=== PATIENT | female | born 1995 | race Caucasian/White ===

== ENCOUNTER → 2019-04-29 | Outpatient (CLI) | payer OTHER ==
--- NOTE | 2019-04-29 19:11 | US ---
EXAMINATION TYPE: US pelvic complete DATE OF EXAM: 04/29/2019 COMPARISON: NONE CLINICAL HISTORY: R10.2 Pelvic Pain. Intermittent cramping, irregular menses, vaginal discharge-muscu s TECHNIQUE: Transabdominal (TA). Date of LMP: 2-3 weeks ago EXAM MEASUREMENTS: Uterus: 7.1 x 3.7 x 4.7 cm Endometrial Stripe: 1.4 cm Right Ovary: 2.5 x 1.6 x 1.6 cm Left Ovary: 3.2 x 2.1 x 2.3 cm 1. Uterus: Anteverted 2. Endometrium: Upper limits of normal 3. Right Ovary: follicles noted 4. Left Ovary: follicles noted 5. Bilateral Adnexa: appears wnl 6. Posterior cul-de-sac: wnl IMPRESSION: 1. Upper limits of normal size of the endometrial thickness. 2. Follicular changes of the ovaries are physiologic.
[2019-04-30 00:49] LABS: Progesterone 7.6 ng/mL
== END | disposition home or self-care (01) ==
LOC: MERGE 16:20 → RADUSWWP 17:01
PROVIDERS: ATTEND Obstetrics & Gynecology
DX: R10.2 Pelvic and perineal pain (principal); N93.8 Other specified abnormal uterine and vaginal bleeding
CPT/HCPCS: 36415; 76856; 82670; 83001; 83002; 84144; 84146; 84702

== ENCOUNTER 2021-07-13 20:46 | Emergency (ER) | payer OTHER ==
[2021-07-13 21:33] VITALS: RESP 18; TEMP 99
[2021-07-13] MEDS ORDERED: SODIUM CHLORIDE 0.9% 1,000 ML IV STA (23:32)
[2021-07-13] MEDS ORDERED: ONDANSETRON 4 MG/2 ML VIAL IVP STA (23:32)
[2021-07-13] MEDS ORDERED: KETOROLAC 15 MG/ML 1 ML VIAL IVP STA (23:32)
--- NOTE | 2021-07-13 23:57 | ED ---
General Adult HPI - General Chief complaint: Abdominal Pain Stated complaint: N/V Source: patient, RN notes reviewed Mode of arrival: ambulatory Limitations: no limitations - History of Present Illness Initial comments: 25-year-old female presents to the emergency room for a chief complaint of nausea vomiting. Patient states that she gets these episodes frequently. She reports that she has had about 3 days of nausea vomiting this time. No significant abdominal pain. Patient has been seen at [facility] several times for this. States she has not yet followed up with primary care or GI but did call today to schedule an appointment for GI for July. Patient reports she may be constipated. Her last bowel movement was yesterday. Patient denies fevers or chills.Patient has no other complaints at this time including shortness of breath, chest pain, headache, or visual changes. - Related Data Previous Rx's Medication Instructions Recorded Metoclopramide [Reglan] 10 mg PO TID PRN #12 tab 07/14/21 Allergies Allergy/AdvReac Type Severity Reaction Status Date / Time amoxicillin AdvReac Vomiting Verified 07/13/21 21:34 diphenhydramine AdvReac Diarrhea Verified 07/13/21 21:34 [From Benadryl Allergy] Review of Systems ROS Statement: Those systems with pertinent positive or pertinent negative responses have been documented in the HPI. ROS Other: All systems not noted in ROS Statement are negative. Past Medical History Past Medical History: No Reported History History of Any Multi-Drug Resistant Organisms: None Reported Past Surgical History: No Surgical Hx Reported Past Psychological History: No Psychological Hx Reported Smoking Status: Former smoker Past Alcohol Use History: None Reported Past Drug Use History: Marijuana General Exam Limitations: no limitations General appearance: alert Head exam: Present: atraumatic, normocephalic, normal inspection Eye exam: Present: normal appearance, PERRL, EOMI. Absent: scleral icterus, conjunctival injection, periorbital swelling ENT exam: Present: normal exam, mucous membranes moist Neck exam: Present: normal inspection. Absent: tenderness, meningismus, lymphadenopathy Respiratory exam: Present: normal lung sounds bilaterally. Absent: respiratory distress, wheezes, rales, rhonchi, stridor Cardiovascular Exam: Present: regular rate, normal rhythm, normal heart sounds. Absent: systolic murmur, diastolic murmur, rubs, gallop, clicks GI/Abdominal exam: Present: soft, normal bowel sounds. Absent: distended, tenderness, guarding, rebound, rigid Course Vital Signs 07/13/21 21:29 Temperature 99 F Pulse Rate 103 H Respiratory 18 Rate Blood Pressure 111/76 O2 Sat by Pulse 94 L Oximetry Medical Decision Making - Medical Decision Making Vitals are stable. Patient is well-appearing. No abdominal tenderness. CBC CMP unremarkable. Urinalysis is negative. HCG is negative. X-ray shows a nonacute abdomen. Patient was given medications. Abdomen was reevaluated. Patient's pain is at a 0. Her abdomen is benign and nontender. Patient's symptoms have been chronic and she is seeing a GI doctor next month. Patient can be discharged home to follow up outpatient will return here for any worsening symptoms. States the Zofran at home was not helping her so we will switch her to Reglan. - Lab Data Result diagrams: 07/14/21 00:44 07/14/21 00:44 Lab Results 07/14/21 07/14/21 07/14/21 Range/Units 00:44 00:44 00:44 WBC 7.3 (3.8-10.6) k/uL RBC 4.08 (3.80-5.40) m/uL Hgb 12.7 (11.4-16.0) gm/dL Hct 37.6 (34.0-46.0) % MCV 92.2 (80.0-100.0) fL MCH 31.2 (25.0-35.0) pg MCHC 33.9 (31.0-37.0) g/dL RDW 13.8 (11.5-15.5) % Plt Count 211 (150-450) k/uL MPV 8.5 Neutrophils % 64 % Lymphocytes % 27 % Monocytes % 6 % Eosinophils % 1 % Basophils % 1 % Neutrophils # 4.7 (1.3-7.7) k/uL Lymphocytes # 2.0 (1.0-4.8) k/uL Monocytes # 0.4 (0-1.0) k/uL Eosinophils # 0.1 (0-0.7) k/uL Basophils # 0.0 (0-0.2) k/uL Sodium 136 L (137-145) mmol/L Potassium 3.5 (3.5-5.1) mmol/L Chloride 105 (98-107) mmol/L Carbon Dioxide 23 (22-30) mmol/L Anion Gap 8 mmol/L BUN 14 (7-17) mg/dL Creatinine 0.85 (0.52-1.04) mg/dL Est GFR (CKD-EPI)AfAm >90 (>60 ml/min/1.73 sqM) Est GFR (CKD-EPI)NonAf >90 (>60 ml/min/1.73 sqM) Glucose 70 L (74-99) mg/dL Calcium 9.2 (8.4-10.2) mg/dL Total Bilirubin 0.2 (0.2-1.3) mg/dL AST 25 (14-36) U/L ALT 10 (4-34) U/L Alkaline Phosphatase 57 (38-126) U/L Total Protein 7.7 (6.3-8.2) g/dL Albumin 4.4 (3.5-5.0) g/dL Amylase 79 (30-110) U/L Lipase 129 (23-300) U/L Urine Color Light Yellow Urine Appearance Clear (Clear) Urine pH 5.0 (5.0-8.0) Ur Specific [place] 1.008 (1.001-1.035) Urine Protein Negative (Negative) Urine Glucose (UA) Negative (Negative) Urine Ketones Negative (Negative) Urine Blood Negative (Negative) Urine Nitrite Negative (Negative) Urine Bilirubin Negative (Negative) Urine Urobilinogen <2.0 (<2.0) mg/dL Ur Leukocyte Esterase Negative (Negative) Urine HCG, Qual (Not Detectd) 07/14/21 Range/Units 00:44 WBC (3.8-10.6) k/uL RBC (3.80-5.40) m/uL Hgb (11.4-16.0) gm/dL Hct (34.0-46.0) % MCV (80.0-100.0) fL MCH (25.0-35.0) pg MCHC (31.0-37.0) g/dL RDW (11.5-15.5) % Plt Count (150-450) k/uL MPV Neutrophils % % Lymphocytes % % Monocytes % % Eosinophils % % Basophils % % Neutrophils # (1.3-7.7) k/uL Lymphocytes # (1.0-4.8) k/uL Monocytes # (0-1.0) k/uL Eosinophils # (0-0.7) k/uL Basophils # (0-0.2) k/uL Sodium (137-145) mmol/L Potassium (3.5-5.1) mmol/L Chloride (98-107) mmol/L Carbon Dioxide (22-30) mmol/L Anion Gap mmol/L BUN (7-17) mg/dL Creatinine (0.52-1.04) mg/dL Est GFR (CKD-EPI)AfAm (>60 ml/min/1.73 sqM) Est GFR (CKD-EPI)NonAf (>60 ml/min/1.73 sqM) Glucose (74-99) mg/dL Calcium (8.4-10.2) mg/dL Total Bilirubin (0.2-1.3) mg/dL AST (14-36) U/L ALT (4-34) U/L Alkaline Phosphatase (38-126) U/L Total Protein (6.3-8.2) g/dL Albumin (3.5-5.0) g/dL Amylase (30-110) U/L Lipase (23-300) U/L Urine Color Urine Appearance (Clear) Urine pH (5.0-8.0) Ur Specific [place] (1.001-1.035) Urine Protein (Negative) Urine Glucose (UA) (Negative) Urine Ketones (Negative) Urine Blood (Negative) Urine Nitrite (Negative) Urine Bilirubin (Negative) Urine Urobilinogen (<2.0) mg/dL Ur Leukocyte Esterase (Negative) Urine HCG, Qual Not Detected (Not Detectd) Disposition Clinical Impression: Abdominal pain Disposition: HOME SELF-CARE Condition: Good Instructions (If sedation given, give patient instructions): Abdominal Pain (ED) Additional Instructions: Please follow up at your GI appointment. If you have any worsening symptoms return to the emergency room. Prescriptions: Metoclopramide [Reglan] 10 mg PO TID PRN #12 tab PRN Reason: Nausea Is patient prescribed a controlled substance at d/c from ED?: No Referrals: Caitlin Carbone MD [STAFF PHYSICIAN] - 1-2 days Time of Disposition: 02:32
--- NOTE | 2021-07-14 01:35 | XR ---
EXAMINATION TYPE: XR KUB DATE OF EXAM: 07/14/2021 COMPARISON: NONE HISTORY: Abdominal pain TECHNIQUE: 2 views upright FINDINGS: Bowel gas pattern is normal. There is no sign of intestinal obstruction or pneumoperitoneum . Fecal pattern is normal. There is no evidence of a mass. There are no pathologic calcifications ove r the kidneys. Lung bases are clear. IMPRESSION: Nonacute abdomen.
[2021-07-14 01:50] LABS: Basophils % (A) 1 %; Eosinophils # (A) 0.1 k/uL (0-0.7); Eosinophils % (A) 1 %; HCT 37.6 % (34.0-46.0); HGB 12.7 gm/dL (11.4-16.0); Lymphocytes % (A) 27 %; MCH 31.2 pg (25.0-35.0); MCHC 33.9 g/dL (31.0-37.0); MCV 92.2 fL (80.0-100.0); Mean Platelet Volume 8.5; Monocytes # (A) 0.4 k/uL (0-1.0); Monocytes % (A) 6 %; Neutrophils # (A) 4.7 k/uL (1.3-7.7); Neutrophils % (A) 64 %; Platelet Count 211 k/uL (150-450); RBC 4.08 m/uL (3.80-5.40); RDW 13.8 % (11.5-15.5); WBC 7.3 k/uL (3.8-10.6)
[2021-07-14 01:51] LABS: Appearance,Urine Clear (Clear); Bilirubin,Urine Negative (Negative); Blood,Urine Negative (Negative); Color,Urine Light Yellow; Glucose,Urine (UA) Negative (Negative); Ketones,Urine Negative (Negative); Leukocyte Esterase,Urine Negative (Negative); Nitrite,Urine Negative (Negative); Protein,Urine Negative (Negative); Specific Gravity,Urine 1.008 (1.001-1.035); Urobilinogen,Urine <2.0 mg/dL (<2.0)
[2021-07-14 02:04] LABS: ALT 10 U/L (4-34); AST 25 U/L (14-36); African American GFR (CKD) >90 (>60 ml/min/1.73 sqM); Albumin 4.4 g/dL (3.5-5.0); Alkaline Phosphatase 57 U/L (38-126); Amylase 79 U/L (30-110); Anion Gap 8 mmol/L; Blood Urea Nitrogen 14 mg/dL (7-17); Calcium 9.2 mg/dL (8.4-10.2); Carbon Dioxide 23 mmol/L (22-30); Chloride 105 mmol/L (98-107); Glucose 70 mg/dL (74-99); Lipase 129 U/L (23-300); Non-African American GFR(CKD) >90 (>60 ml/min/1.73 sqM); Potassium 3.5 mmol/L (3.5-5.1); Sodium 136 mmol/L (137-145); Total Bilirubin 0.2 mg/dL (0.2-1.3); Total Protein 7.7 g/dL (6.3-8.2)
[2021-07-14 02:45] VITALS: BP 104/68; PULSE 70
== END 2021-07-14 02:47 | disposition home or self-care (01) ==
LOC: EC 20:46
DX: R10.9 Unspecified abdominal pain (principal); Z88.0 Allergy status to penicillin; Z88.8 Allergy status to other drugs, medicaments and biological substances; Z87.891 Personal history of nicotine dependence
CPT/HCPCS: 36415; 80053; 82150; 83690; 85025; 81003; 81025; 74018; 96374; 96375; 99284; 96361; J2405; J1885

== ENCOUNTER 2021-09-03 19:54 | Emergency (ER) | payer OTHER ==
[2021-09-03 20:00] LABS: Glucose,Whole Blood 132 mg/dL (75-99)
[2021-09-03] MEDS ORDERED: SODIUM CHLORIDE 0.9% 1,000 ML IV STA ×2 (20:05→21:20)
[2021-09-03] MEDS ORDERED: ONDANSETRON 4 MG/2 ML VIAL IVP STA (20:05)
[2021-09-03 20:25] LABS: ALT 14 U/L (4-34); AST 35 U/L (14-36); African American GFR (CKD) >90 (>60 ml/min/1.73 sqM); Albumin 4.6 g/dL (3.5-5.0); Alkaline Phosphatase 67 U/L (38-126); Amylase 70 U/L (30-110); Anion Gap 16 mmol/L; Blood Urea Nitrogen 14 mg/dL (7-17); Calcium 9.5 mg/dL (8.4-10.2); Carbon Dioxide 17 mmol/L (22-30); Chloride 111 mmol/L (98-107); Glucose 133 mg/dL (74-99); Lipase 193 U/L (23-300); Non-African American GFR(CKD) >90 (>60 ml/min/1.73 sqM); Potassium 3.2 mmol/L (3.5-5.1); Sodium 144 mmol/L (137-145); Total Bilirubin 0.4 mg/dL (0.2-1.3); Total Protein 7.9 g/dL (6.3-8.2)
[2021-09-03 20:49] LABS: Basophils # (A) 0.1 k/uL (0-0.2); Basophils % (A) 1 %; Eosinophils # (A) 0.2 k/uL (0-0.7); Eosinophils % (A) 2 %; HCT 39.9 % (34.0-46.0); HGB 13.5 gm/dL (11.4-16.0); Lymphocytes # (A) 4.7 k/uL (1.0-4.8); Lymphocytes % (A) 50 %; MCH 31.4 pg (25.0-35.0); MCHC 33.8 g/dL (31.0-37.0); MCV 92.9 fL (80.0-100.0); Mean Platelet Volume 8.3; Monocytes # (A) 0.6 k/uL (0-1.0); Monocytes % (A) 6 %; Neutrophils # (A) 3.6 k/uL (1.3-7.7); Neutrophils % (A) 38 %; Platelet Count 243 k/uL (150-450); RDW 12.5 % (11.5-15.5); WBC 9.5 k/uL (3.8-10.6)
[2021-09-03 20:57] LABS: HCG,Qualitative Serum Not Detected
[2021-09-03] MEDS ORDERED: POTASSIUM CHLORIDE ER 20 MEQ TAB.ER PO STA (21:23)
--- NOTE | 2021-09-03 21:41 | ED ---
General Adult HPI - General Chief complaint: Seizure Stated complaint: Seizure Time Seen by Provider: 09/03/21 20:02 Source: patient, family, RN notes reviewed, old records reviewed Mode of arrival: ambulatory Limitations: no limitations - History of Present Illness Initial comments: I evaluated the patient when she was placed in a room. Patient is a 25-year-old female with past medical history remarkable for pseudoseizures who presents emergency Department complaining of nausea and vomiting for one month. She states she gets intermittent nausea and vomiting. States is from lower abdominal discomfort. She has nonbilious, bloody emesis. She denies any diarrhea or change in bowel habits. Denies any chest pain, shortness breath, fevers, cough. She does have a history of pseudoseizures is not on any antiepileptic medications. She no longer sees a neurologist. Patient had a pseudoseizure in the waiting room and was rushed back to the trauma bay. She was immediately alert and oriented when I spoke with her. She is no longer having a pseudoseizure. She denies any acute complaints at this time. She states she is not . She has no concern for STDs or STI's at this time. Patient voices no acute complaints. Patient presents over concern for pseudoseizure as well as nausea and vomiting with abdominal discomfort when she has the nausea present, which is not present currently I spoke with the patient as well as her boyfriend, and her typical pseudoseizure symptoms are generalized tonic-clonic movements but she still attempts to communicate with whoever she is with an is able to speak sometimes. She had one of these episodes in the waiting room which is why she was brought back to the trauma bay. - Related Data Home Medications Medication Instructions Recorded Confirmed No Known Home Medications 09/03/21 09/03/21 Allergies Allergy/AdvReac Type Severity Reaction Status Date / Time amoxicillin AdvReac Vomiting Verified 09/03/21 20:49 diphenhydramine AdvReac Diarrhea Verified 09/03/21 20:49 [From Benadryl Allergy] Review of Systems ROS Statement: Those systems with pertinent positive or pertinent negative responses have been documented in the HPI. Review of Systems: CONST: Denies fever EYES: Denies blurry vision ENT: Denies nasal congestion C/V: Denies Chest pain RESP: Denies shortness of breath GI: Denies abdominal pain. : Denies dysuria SKIN: Denies rash. MSK: Denies joint pain. NEURO: Denies headache ROS Other: All systems not noted in ROS Statement are negative. Past Medical History Past Medical History: No Reported History Additional Past Medical History / Comment(s): psuedo-seizures History of Any Multi-Drug Resistant Organisms: None Reported Past Surgical History: No Surgical Hx Reported Past Psychological History: No Psychological Hx Reported Smoking Status: Former smoker Past Alcohol Use History: None Reported Past Drug Use History: Marijuana General Exam - General Exam Comments Initial Comments: General: Appears in no acute distress. HEAD: Normal with no signs of head trauma. EYES: PERRLA, EOMI, conjunctiva normal, no discharge. Pupils are 3 mm and equally reactive. ENT: Hearing grossly intact, normal oropharynx. RESPIRATORY: Clear breath sounds bilaterally. No wheezes, rales, or rhonchi. C/V: Patient is tachycardic with a regular rhythm. S1 and S2 auscultated. No peripheral edema. Peripheral pulses are 2+ and intact throughout. ABD: Abd is soft, nontender, nondistended EXT: Normal range of motion, no obvious deformity SKIN: No rashes or lesions observed on exposed skin. NEURO: Alert and oriented 4. Cranial nerves II-12 intact. No focal sensory strength deficits. GCS is 15. NIH is 0. Limitations: no limitations Course Vital Signs 09/03/21 09/03/21 09/03/21 20:04 20:30 21:00 Temperature 97.9 F Pulse Rate 130 H 84 84 Respiratory 20 20 16 Rate Blood Pressure 123/96 116/82 113/78 O2 Sat by Pulse 94 L 97 98 Oximetry 09/03/21 22:50 Temperature Pulse Rate 73 Respiratory 18 Rate Blood Pressure 105/82 O2 Sat by Pulse 98 Oximetry Medical Decision Making - Medical Decision Making Based on the patient's presentation and physical exam, I'm concerned for dehydration and the patient as well as on exposed nausea and vomiting. She also could've a pseudoseizure. Therefore we will obtain basic laboratory studies. S he will receive fluid hydration. Screening EKG will be obtained. She was in agreement this plan. She currently has no acute complaints at this time. Patient's EKG showed resolution of her tachycardia. There are no signs of acute ischemia. Patient's laboratory studies are remarkable for a mild hypokalemia at 3.2, hyperchloremia of 111, as well as an acute lactic acidosis of a 0.6 which is likely secondary to her tonic-clonic movements with her pseudoseizures. We will repeat the lactate following 2 L of fluid bolusing. She is not . Repeat lactic acid is within normal limits. On reevaluation she is feeling improved. I believe it is safer to be discharged home. She was in agreement this plan. She remained a symptomatically never had another pseudoseizure while she was here in the department. Vital signs are stable. I will provide the patient with a prescription for Zofran starter pack. I instructed the patient to follow up with their PCP in the next 3 days. I provided contact information for follow up with Dr. Cosby. I explained that the patient should return to the emergency department if they experience any worsening symptoms. Strict return precautions were discussed with the patient. The patient expressed understanding of these instructions. I answered all questions that the patient had. The patient was discharged home in good condit ion with their prescriptions and follow up information. - Lab Data Result diagrams: 09/03/21 20:06 09/03/21 20:06 Lab Results 09/03/21 09/03/21 09/03/21 Range/Units 19:59 20:06 20:06 WBC 9.5 (3.8-10.6) k/uL RBC 4.30 (3.80-5.40) m/uL Hgb 13.5 (11.4-16.0) gm/dL Hct 39.9 (34.0-46.0) % MCV 92.9 (80.0-100.0) fL MCH 31.4 (25.0-35.0) pg MCHC 33.8 (31.0-37.0) g/dL RDW 12.5 (11.5-15.5) % Plt Count 243 (150-450) k/uL MPV 8.3 Neutrophils % 38 % Lymphocytes % 50 % Monocytes % 6 % Eosinophils % 2 % Basophils % 1 % Neutrophils # 3.6 (1.3-7.7) k/uL Lymphocytes # 4.7 (1.0-4.8) k/uL Monocytes # 0.6 (0-1.0) k/uL Eosinophils # 0.2 (0-0.7) k/uL Basophils # 0.1 (0-0.2) k/uL Sodium (137-145) mmol/L Potassium (3.5-5.1) mmol/L Chloride (98-107) mmol/L Carbon Dioxide (22-30) mmol/L Anion Gap mmol/L BUN (7-17) mg/dL Creatinine (0.52-1.04) mg/dL Est GFR (CKD-EPI)AfAm (>60 ml/min/1.73 sqM) Est GFR (CKD-EPI)NonAf (>60 ml/min/1.73 sqM) Glucose (74-99) mg/dL POC Glucose (mg/dL) 132 H (75-99) mg/dL POC Glu [employer] Programmer ID Willing, Zaynab Lactic Ac Sepsis Rflx Plasma Lactic Acid Robby (0.7-2.0) mmol/L Calcium (8.4-10.2) mg/dL Total Bilirubin (0.2-1.3) mg/dL AST (14-36) U/L ALT (4-34) U/L Alkaline Phosphatase (38-126) U/L Total Protein (6.3-8.2) g/dL Albumin (3.5-5.0) g/dL Amylase (30-110) U/L Lipase (23-300) U/L HCG, Qual Urine Color Yellow Urine Appearance Clear (Clear) Urine pH 5.5 (5.0-8.0) Ur Specific [place] 1.027 (1.001-1.035) Urine Protein Negative (Negative) Urine Glucose (UA) Negative (Negative) Urine Ketones Negative (Negative) Urine Blood Negative (Negative) Urine Nitrite Negative (Negative) Urine Bilirubin Negative (Negative) Urine Urobilinogen <2.0 (<2.0) mg/dL Ur Leukocyte Esterase Negative (Negative) 09/03/21 09/03/21 09/03/21 Range/Units 20:06 20:06 20:36 WBC (3.8-10.6) k/uL RBC (3.80-5.40) m/uL Hgb (11.4-16.0) gm/dL Hct (34.0-46.0) % MCV (80.0-100.0) fL MCH (25.0-35.0) pg MCHC (31.0-37.0) g/dL RDW (11.5-15.5) % Plt Count (150-450) k/uL MPV Neutrophils % % Lymphocytes % % Monocytes % % Eosinophils % % Basophils % % Neutrophils # (1.3-7.7) k/uL Lymphocytes # (1.0-4.8) k/uL Monocytes # (0-1.0) k/uL Eosinophils # (0-0.7) k/uL Basophils # (0-0.2) k/uL Sodium 144 (137-145) mmol/L Potassium 3.2 L (3.5-5.1) mmol/L Chloride 111 H (98-107) mmol/L Carbon Dioxide 17 L (22-30) mmol/L Anion Gap 16 mmol/L BUN 14 (7-17) mg/dL Creatinine 0.87 (0.52-1.04) mg/dL Est GFR (CKD-EPI)AfAm >90 (>60 ml/min/1.73 sqM) Est GFR (CKD-EPI)NonAf >90 (>60 ml/min/1.73 sqM) Glucose 133 H (74-99) mg/dL POC Glucose (mg/dL) (75-99) mg/dL POC Glu [employer] Programmer ID Lactic Ac Sepsis Rflx Y Plasma Lactic Acid Robby 8.6 H* (0.7-2.0) mmol/L Calcium 9.5 (8.4-10.2) mg/dL Total Bilirubin 0.4 (0.2-1.3) mg/dL AST 35 (14-36) U/L ALT 14 (4-34) U/L Alkaline Phosphatase 67 (38-126) U/L Total Protein 7.9 (6.3-8.2) g/dL Albumin 4.6 (3.5-5.0) g/dL Amylase 70 (30-110) U/L Lipase 193 (23-300) U/L HCG, Qual Not Detected Urine Color Urine Appearance (Clear) Urine pH (5.0-8.0) Ur Specific [place] (1.001-1.035) Urine Protein (Negative) Urine Glucose (UA) (Negative) Urine Ketones (Negative) Urine Blood (Negative) Urine Nitrite (Negative) Urine Bilirubin (Negative) Urine Urobilinogen (<2.0) mg/dL Ur Leukocyte Esterase (Negative) 09/03/21 Range/Units 22:42 WBC (3.8-10.6) k/uL RBC (3.80-5.40) m/uL Hgb (11.4-16.0) gm/dL Hct (34.0-46.0) % MCV (80.0-100.0) fL MCH (25.0-35.0) pg MCHC (31.0-37.0) g/dL RDW (11.5-15.5) % Plt Count (150-450) k/uL MPV Neutrophils % % Lymphocytes % % Monocytes % % Eosinophils % % Basophils % % Neutrophils # (1.3-7.7) k/uL Lymphocytes # (1.0-4.8) k/uL Monocytes # (0-1.0) k/uL Eosinophils # (0-0.7) k/uL Basophils # (0-0.2) k/uL Sodium (137-145) mmol/L Potassium (3.5-5.1) mmol/L Chloride (98-107) mmol/L Carbon Dioxide (22-30) mmol/L Anion Gap mmol/L BUN (7-17) mg/dL Creatinine (0.52-1.04) mg/dL Est GFR (CKD-EPI)AfAm (>60 ml/min/1.73 sqM) Est GFR (CKD-EPI)NonAf (>60 ml/min/1.73 sqM) Glucose (74-99) mg/dL POC Glucose (mg/dL) (75-99) mg/dL POC Glu [employer] Programmer ID Lactic Ac Sepsis Rflx Plasma Lactic Acid Robby 0.7 (0.7-2.0) mmol/L Calcium (8.4-10.2) mg/dL Total Bilirubin (0.2-1.3) mg/dL AST (14-36) U/L ALT (4-34) U/L Alkaline Phosphatase (38-126) U/L Total Protein (6.3-8.2) g/dL Albumin (3.5-5.0) g/dL Amylase (30-110) U/L Lipase (23-300) U/L HCG, Qual Urine Color Urine Appearance (Clear) Urine pH (5.0-8.0) Ur Specific [place] (1.001-1.035) Urine Protein (Negative) Urine Glucose (UA) (Negative) Urine Ketones (Negative) Urine Blood (Negative) Urine Nitrite (Negative) Urine Bilirubin (Negative) Urine Urobilinogen (<2.0) mg/dL Ur Leukocyte Esterase (Negative) - EKG Data -: EKG Interpreted by Me EKG Comments: 12-lead Electrocardiogram Interpretation Note EKG was reviewed and interpreted by myself. 12-lead ECG performed at 2003 is interpreted by me as revealing normal sinus rhythm at a rate of 99 beats per minute. [place] is normal. [place] interval is 150 ms, QRS duration is 82 ms, QTc is 462 ms.. There were no ST or T wave abnormalities to suggest myocardial ischemia or injury. R wave progression across the precordium was satisfactory. By my interpretation this EKG is non-diagnostic for acute ischemia. Disposition Clinical Impression: Nausea and vomiting, Hypokalemia, Dehydration, Lactic acidosis, Pseudoseizure Disposition: HOME SELF-CARE Condition: Good Instructions (If sedation given, give patient instructions): Acute Nausea and Vomiting (ED) Is patient prescribed a controlled substance at d/c from ED?: No Referrals: None,Stated [Primary Care Provider] - 1-2 days Caryn Cosby MD [STAFF PHYSICIAN] - 1-2 days
[2021-09-03 22:11] LABS: Appearance,Urine Clear (Clear); Bilirubin,Urine Negative (Negative); Blood,Urine Negative (Negative); Color,Urine Yellow; Glucose,Urine (UA) Negative (Negative); Ketones,Urine Negative (Negative); Leukocyte Esterase,Urine Negative (Negative); Nitrite,Urine Negative (Negative); PH, Urine 5.5 (5.0-8.0); Protein,Urine Negative (Negative); Specific Gravity,Urine 1.027 (1.001-1.035); Urobilinogen,Urine <2.0 mg/dL (<2.0)
[2021-09-03] MEDS ORDERED: ONDANSETRON 4 MG ODT STARTER PACK 2 TAB BTL PO STA (23:29)
[2021-09-04 00:25] VITALS: BP 108/78; PULSE 78; RESP 16; TEMP 98
== END 2021-09-04 00:22 | disposition home or self-care (01) ==
LOC: EC 19:54
DX: E86.0 Dehydration (principal); E87.2 Acidosis; E87.6 Hypokalemia; G40.909 Epilepsy, unspecified, not intractable, without status epilepticus; Z87.891 Personal history of nicotine dependence; Z88.0 Allergy status to penicillin; Z88.8 Allergy status to other drugs, medicaments and biological substances
CPT/HCPCS: 36415; 80053; 81003; 82150; 83605; 83690; 84703; 85025; 93005; 96361; 96374; 99284

== ENCOUNTER 2022-02-01 18:10 | Observation (INO) | payer OTHER ==
[2022-02-01] MEDS ORDERED: LORazepam 2 MG/ML INJ IV STA ×2 (18:32→20:46)
--- NOTE | 2022-02-01 18:37 | ED ---
General Adult HPI - General Stated complaint: seizure Time Seen by Provider: 02/01/22 18:23 Source: patient, RN notes reviewed Mode of arrival: EMS Limitations: no limitations - History of Present Illness Initial comments: Patient is a pleasant 36-year-old female presenting to the emergency department with concern for seizure. Patient has known history of pseudoseizures. Patient has been having more recently. Patient states she struck her head once earlier today as well as a couple of days ago. No loss of consciousness. Patient has increased stress and anxiety. Patient has been shaky. - Related Data Home Medications Medication Instructions Recorded Confirmed No Known Home Medications 09/03/21 09/03/21 Allergies Allergy/AdvReac Type Severity Reaction Status Date / Time amoxicillin AdvReac Nausea & Verified 02/01/22 22:20 Vomiting & Diarrhea diphenhydramine AdvReac Nausea & Verified 02/01/22 22:20 [From Benadryl Allergy] Vomiting & Diarrhea Review of Systems ROS Statement: Those systems with pertinent positive or pertinent negative responses have been documented in the HPI. ROS Other: All systems not noted in ROS Statement are negative. Constitutional: Denies: fever Eyes: Denies: eye pain ENT: Denies: ear pain Respiratory: Denies: cough Cardiovascular: Denies: chest pain Endocrine: Reports: fatigue Gastrointestinal: Denies: abdominal pain Genitourinary: Denies: dysuria Musculoskeletal: Denies: back pain Skin: Denies: rash Neurological: Reports: as per HPI. Denies: weakness Past Medical History Past Medical History: No Reported History Additional Past Medical History / Comment(s): psuedo-seizures History of Any Multi-Drug Resistant Organisms: None Reported Past Surgical History: No Surgical Hx Reported Past Psychological History: No Psychological Hx Reported Smoking Status: Former smoker Past Alcohol Use History: None Reported Past Drug Use History: Marijuana General Exam Limitations: no limitations General appearance: alert, anxious Head exam: Present: normocephalic Eye exam: Present: normal appearance, PERRL, EOMI ENT exam: Present: normal oropharynx Neck exam: Present: normal inspection Respiratory exam: Present: normal lung sounds bilaterally Cardiovascular Exam: Present: regular rate, normal rhythm GI/Abdominal exam: Present: soft. Absent: tenderness Extremities exam: Present: normal inspection, full ROM. Absent: tenderness Neurological exam: Present: alert, CN II-XII intact. Absent: motor sensory deficit Expanded Neurological exam: Present: protecting the airway Speech: Present: fluid speech Cranial nerves: EOM's Intact: Normal Motor strength exam: RUE: 5, LUE: 5, RLE: 5, LLE: 5 Eye Response: (4) open spontaneously Motor Response: (6) obeys commands Verbal Response: (5) oriented Psychiatric exam: Present: anxious Skin exam: Present: normal color Course Vital Signs 02/01/22 02/01/22 18:31 20:53 Temperature 99.4 F Pulse Rate 128 H 118 H Respiratory 16 16 Rate Blood Pressure 113/68 117/71 O2 Sat by Pulse 100 98 Oximetry EKG Findings - EKG Comments: EKG Findings:: Sinus tachycardia 105. HI 141. QRS 79. QT 333. QTC 394. Normal axis. Normal QRS. Lateral ST depression. Medical Decision Making - Medical Decision Making Patient reevaluated and resting comfortably in bed. Patient is feeling somewhat better. He should and family updated on results and plan. Patient does have low CO2 at 12. Nonspecific EKG changes. Case discussed with Dr. Grayson, who will admit his patient. Consults will place with neurology andg review with cardiology. - Lab Data Result diagrams: 02/01/22 19:06 02/01/22 19:06 Lab Results 02/01/22 02/01/22 02/01/22 Range/Units 19:06 19:06 19:06 WBC 4.8 (3.8-10.6) k/uL RBC 4.10 (3.80-5.40) m/uL Hgb 12.8 (11.4-16.0) gm/dL Hct 38.5 (34.0-46.0) % MCV 93.9 (80.0-100.0) fL MCH 31.1 (25.0-35.0) pg MCHC 33.1 (31.0-37.0) g/dL RDW 13.6 (11.5-15.5) % Plt Count 228 (150-450) k/uL MPV 8.0 Neutrophils % 60 % Lymphocytes % 25 % Monocytes % 5 % Eosinophils % 8 % Basophils % 1 % Neutrophils # 2.9 (1.3-7.7) k/uL Lymphocytes # 1.2 (1.0-4.8) k/uL Monocytes # 0.2 (0-1.0) k/uL Eosinophils # 0.4 (0-0.7) k/uL Basophils # 0.0 (0-0.2) k/uL Sodium 139 (137-145) mmol/L Potassium 3.4 L (3.5-5.1) mmol/L Chloride 112 H (98-107) mmol/L Carbon Dioxide 12 L (22-30) mmol/L Anion Gap 15 mmol/L BUN 13 (7-17) mg/dL Creatinine 0.97 (0.52-1.04) mg/dL Est GFR (CKD-EPI)AfAm >90 (>60 ml/min/1.73 sqM) Est GFR (CKD-EPI)NonAf 81 (>60 ml/min/1.73 sqM) Glucose 112 H (74-99) mg/dL Calcium 9.0 (8.4-10.2) mg/dL Magnesium 1.9 (1.6-2.3) mg/dL Total Bilirubin 0.4 (0.2-1.3) mg/dL AST 27 (14-36) U/L ALT 15 (4-34) U/L Alkaline Phosphatase 53 (38-126) U/L Troponin I <0.012 (0.000-0.034) ng/mL Total Protein 7.6 (6.3-8.2) g/dL Albumin 4.2 (3.5-5.0) g/dL Urine Color Urine Appearance (Clear) Urine pH (5.0-8.0) Ur Specific [place] (1.001-1.035) Urine Protein (Negative) Urine Glucose (UA) (Negative) Urine Ketones (Negative) Urine Blood (Negative) Urine Nitrite (Negative) Urine Bilirubin (Negative) Urine Urobilinogen (<2.0) mg/dL Ur Leukocyte Esterase (Negative) Urine RBC (0-5) /hpf Urine WBC (0-5) /hpf Ur Squamous Epith Cells (0-4) /hpf Urine Bacteria (None) /hpf Hyaline Casts (0-2) /lpf Urine Mucus (None) /hpf Urine Opiates Screen (NotDetected) Ur Oxycodone Screen (NotDetected) Urine Methadone Screen (NotDetected) Ur Propoxyphene Screen (NotDetected) Ur Barbiturates Screen (NotDetected) Carbamazepine <3.0 ug/mL U Tricyclic Antidepress (NotDetected) Ur Phencyclidine Scrn (NotDetected) Ur Amphetamines Screen (NotDetected) U Methamphetamines Scrn (NotDetected) U Benzodiazepines Scrn (NotDetected) Urine Cocaine Screen (NotDetected) U Marijuana (THC) Screen (NotDetected) Serum Alcohol <10 mg/dL 02/01/22 Range/Units 20:11 WBC (3.8-10.6) k/uL RBC (3.80-5.40) m/uL Hgb (11.4-16.0) gm/dL Hct (34.0-46.0) % MCV (80.0-100.0) fL MCH (25.0-35.0) pg MCHC (31.0-37.0) g/dL RDW (11.5-15.5) % Plt Count (150-450) k/uL MPV Neutrophils % % Lymphocytes % % Monocytes % % Eosinophils % % Basophils % % Neutrophils # (1.3-7.7) k/uL Lymphocytes # (1.0-4.8) k/uL Monocytes # (0-1.0) k/uL Eosinophils # (0-0.7) k/uL Basophils # (0-0.2) k/uL Sodium (137-145) mmol/L Potassium (3.5-5.1) mmol/L Chloride (98-107) mmol/L Carbon Dioxide (22-30) mmol/L Anion Gap mmol/L BUN (7-17) mg/dL Creatinine (0.52-1.04) mg/dL Est GFR (CKD-EPI)AfAm (>60 ml/min/1.73 sqM) Est GFR (CKD-EPI)NonAf (>60 ml/min/1.73 sqM) Glucose (74-99) mg/dL Calcium (8.4-10.2) mg/dL Magnesium (1.6-2.3) mg/dL Total Bilirubin (0.2-1.3) mg/dL AST (14-36) U/L ALT (4-34) U/L Alkaline Phosphatase (38-126) U/L Troponin I (0.000-0.034) ng/mL Total Protein (6.3-8.2) g/dL Albumin (3.5-5.0) g/dL Urine Color Yellow Urine Appearance Cloudy H (Clear) Urine pH 5.5 (5.0-8.0) Ur Specific [place] 1.031 (1.001-1.035) Urine Protein Trace H (Negative) Urine Glucose (UA) Negative (Negative) Urine Ketones Trace H (Negative) Urine Blood Negative (Negative) Urine Nitrite Negative (Negative) Urine Bilirubin Negative (Negative) Urine Urobilinogen <2.0 (<2.0) mg/dL Ur Leukocyte Esterase Large H (Negative) Urine RBC 2 (0-5) /hpf Urine WBC 9 H (0-5) /hpf Ur Squamous Epith Cells 12 H (0-4) /hpf Urine Bacteria Rare H (None) /hpf Hyaline Casts 1 (0-2) /lpf Urine Mucus Rare H (None) /hpf Urine Opiates Screen Not Detected (NotDetected) Ur Oxycodone Screen Not Detected (NotDetected) Urine Methadone Screen Not Detected (NotDetected) Ur Propoxyphene Screen Not Detected (NotDetected) Ur Barbiturates Screen Not Detected (NotDetected) Carbamazepine ug/mL U Tricyclic Antidepress Not Detected (NotDetected) Ur Phencyclidine Scrn Not Detected (NotDetected) Ur Amphetamines Screen Not Detected (NotDetected) U Methamphetamines Scrn Not Detected (NotDetected) U Benzodiazepines Scrn Detected H (NotDetected) Urine Cocaine Screen Not Detected (NotDetected) U Marijuana (THC) Screen Not Detected (NotDetected) Serum Alcohol mg/dL - Radiology Data Radiology results: image reviewed (CT brain reveals no acute process.) Disposition Clinical Impression: Generalized seizure Disposition: ADMITTED IP TO [facility] Instructions (If sedation given, give patient instructions): Seizure/Epilepsy Discharge Instructions & Follow-Up Is patient prescribed a controlled substance at d/c from ED?: No Referrals: Javier Grayson MD [Primary Care Provider] - 1-2 days Decision Time: 22:23
[2022-02-01 19:13] LABS: Basophils % (A) 1 %; Eosinophils # (A) 0.4 k/uL (0-0.7); Eosinophils % (A) 8 %; HCT 38.5 % (34.0-46.0); HGB 12.8 gm/dL (11.4-16.0); Lymphocytes # (A) 1.2 k/uL (1.0-4.8); Lymphocytes % (A) 25 %; MCH 31.1 pg (25.0-35.0); MCHC 33.1 g/dL (31.0-37.0); MCV 93.9 fL (80.0-100.0); Monocytes # (A) 0.2 k/uL (0-1.0); Monocytes % (A) 5 %; Neutrophils # (A) 2.9 k/uL (1.3-7.7); Neutrophils % (A) 60 %; Platelet Count 228 k/uL (150-450); RDW 13.6 % (11.5-15.5); WBC 4.8 k/uL (3.8-10.6)
[2022-02-01 19:33] LABS: Chloride 112 mmol/L (98-107); Potassium 3.4 mmol/L (3.5-5.1); Sodium 139 mmol/L (137-145)
--- NOTE | 2022-02-01 19:35 | CT ---
EXAMINATION TYPE: CT brain wo con DATE OF EXAM: 02/01/2022 COMPARISON: None HISTORY: Seizure. CT DLP: 1084.4 mGycm Automated exposure control for dose reduction was used. Ventricles have normal size. There is no mass effect or midline shift. There is no sign of intracrani al hemorrhage. Calvarium is intact. There is no evidence of cerebral edema. There is normal aeration of the mastoid sinuses. Skull base is intact. IMPRESSION: Normal unenhanced head CT scan.
[2022-02-01 19:36] LABS: ALT 15 U/L (4-34); AST 27 U/L (14-36); African American GFR (CKD) >90 (>60 ml/min/1.73 sqM); Albumin 4.2 g/dL (3.5-5.0); Alkaline Phosphatase 53 U/L (38-126); Anion Gap 15 mmol/L; Blood Urea Nitrogen 13 mg/dL (7-17); Carbon Dioxide 12 mmol/L (22-30); Glucose 112 mg/dL (74-99); Magnesium 1.9 mg/dL (1.6-2.3); Non-African American GFR(CKD) 81 (>60 ml/min/1.73 sqM); Total Bilirubin 0.4 mg/dL (0.2-1.3); Total Protein 7.6 g/dL (6.3-8.2)
[2022-02-01 19:40] LABS: Carbamazepine (Tegretol) <3.0 ug/mL
[2022-02-01 19:41] LABS: Alcohol <10 mg/dL
[2022-02-01 20:24] LABS: Appearance,Urine Cloudy (Clear); Bacteria,Urine Rare /hpf; Bilirubin,Urine Negative (Negative); Blood,Urine Negative (Negative); Color,Urine Yellow; Glucose,Urine (UA) Negative (Negative); Hyaline Casts,Urine 1 /lpf (0-2); Ketones,Urine Trace (Negative); Leukocyte Esterase,Urine Large (Negative); Mucus,Urine Rare /hpf; Nitrite,Urine Negative (Negative); PH, Urine 5.5 (5.0-8.0); Protein,Urine Trace (Negative); RBC,Urine 2 /hpf (0-5); Specific Gravity,Urine 1.031 (1.001-1.035); Squamous Epithelial Cell,Urine 12 /hpf (0-4); Urobilinogen,Urine <2.0 mg/dL (<2.0); WBC,Urine 9 /hpf (0-5)
[2022-02-01 20:37] LABS: Amphetamine Screen,Urine Not Detected (NotDetected); Barbiturate Screen,Urine Not Detected (NotDetected); Benzodiazepines Screen,Urine Detected (NotDetected); Cocaine Screen,Urine Not Detected (NotDetected); Methadone Screen, Urine Not Detected (NotDetected); Opiate Screen,Urine Not Detected (NotDetected); Oxycodone Screen, Urine Not Detected (NotDetected); Phencyclidine Screen,Urine Not Detected (NotDetected); Tricyclic Antidepressant,Urine Not Detected (NotDetected); Urn Cannabinoid Scrn Not Detected (NotDetected)
[2022-02-01] MEDS ORDERED: LORazepam 2 MG/ML INJ IV PRN (22:24)
[2022-02-01] MEDS ORDERED: NALOXONE 0.4 MG/ML 1 ML VIAL IV PRN (22:24)
[2022-02-01] MEDS ORDERED: ACETAMINOPHEN TAB 325 MG TAB PO PRN (22:24)
[2022-02-01] MEDS ORDERED: SODIUM CHLORIDE 0.9% 1,000 ML IV SCH (22:30)
[2022-02-01] MEDS: LACOSAMIDE 50 MG TABLET PO SCH (23:26)
[2022-02-01] MEDS: busPIRone HCl 5 MG TAB PO SCH (23:27)
[2022-02-01] MEDS: OXcarbazepine 300 MG TAB PO SCH (23:27)
[2022-02-01] MEDS: TOPIRAMATE 100 MG TAB PO SCH (23:27)
[2022-02-02 06:32] LABS: African American GFR (CKD) >90 (>60 ml/min/1.73 sqM); Anion Gap 7 mmol/L; Blood Urea Nitrogen 12 mg/dL (7-17); Calcium 8.4 mg/dL (8.4-10.2); Carbon Dioxide 19 mmol/L (22-30); Chloride 112 mmol/L (98-107); Glucose 96 mg/dL (74-99); Non-African American GFR(CKD) 81 (>60 ml/min/1.73 sqM); Potassium 3.4 mmol/L (3.5-5.1); Sodium 138 mmol/L (137-145)
[2022-02-02] MEDS ORDERED: ESCITALOPRAM 10 MG TAB PO SCH (09:00)
[2022-02-02] MEDS: OXcarbazepine 300 MG TAB PO SCH (09:18)
[2022-02-02] MEDS: TOPIRAMATE 100 MG TAB PO SCH (09:18)
[2022-02-02] MEDS: busPIRone HCl 5 MG TAB PO SCH (09:18)
[2022-02-02] MEDS: LACOSAMIDE 50 MG TABLET PO SCH (09:18)
--- NOTE | 2022-02-02 09:36 | P.CNNES ---
History of Present Illness Consult date: 02/02/22 Requesting physician: Shahbaz Rooney Reason for Consult: seizure vs pseudoseizure History of Present Illness: This is a 26-year-old woman with reported history of seizure that was told it is epileptic and non-epileptic in nature (pseudoseizure) who comes into the emergency department on 02/01/2022 for concern for worsening of her seizure. According to the patient the patient the has been having more frequent seizure like activity for the last couple days. Patient is inconsistent with a history. She states that she was diagnosed with seizures at the age of 14 and was told she has simple partial seizure. She was also told that she has epileptic in nature and was told that she has pseudoseizures. In the last couple days she states that her seizure and has been more frequent and she has a body jerks throughout all extremities and it would last 1-2 minutes. She denies any loss of consciousness but said that that sometimes she would lose awareness was some of the episodes. She denies of any tongue bite or any urinary or bowel incontinence with these episodes. She is seeing Dr. Hernández's team and she was told by him that she has underlying epilepsy while she was told by Dr. Sotelo (PCP) that she has pseudoseizure. Regarding workup and she stated that she had 2 EEGs in the past she does not know the result. She had the EEGs at [facility]. She's been having increased stress and anxiety and has struck her head yesterday and a couple days prior to that. She said that she has a chronic head bobbing for years. She has taken Topamax 100 mg 1 tablet twice a day, Vimpat 50 [place] tablet twice a day 8 and the Trileptal 300 mg 1 tablet twice a day for her seizures and she stated that this was started about 1-3 month ago and she is not sure if was started by her primary or or her neurologist. In the past she was on Keppra but that was stopped because of the worsening of the mood. She is also on buspirone 50 mg 1 tablet twice a day as well as Lexapro 10 mg daily. Per the nurse she had multiple episode where she had shaking of extremities and was following commands. Some of the workup in the hospital consisted of: Initial vital signs his blood pressure of 113/68, heart rate 128, respiratory of 16, temperature of 99.4F oral and pulse oxy is 100% at RA. CBC with differential is unremarkable Chemistry panel is potassium 3.4 chloride to 112 carbon dioxide is 12 otherwise rest of her chemistry panel is unremarkable. Initial serum glucose 112 5. Urinalysis is leukocyte esterase was large, urine white blood cells 9, urine bacteria was rare possibly suggestive of urinary tract infection Urine drug screen is positive for benzos otherwise rest is not detected and the carbamazepine is less than 3.0 serum alcohol is less than 10. The carbamazepine level normal supposed to be between 4-[address] of the head is reported as normal on has had computed tomography scan. I personally reviewed the CT of the head and there is no acute or subacute ischemia there is no intraparenchymal hemorrhage. There is no appreciable mass seen. EKG is reported as sinus tachycardia. Moderate ST depression. Abnormal EKG. Review of Systems Review of system: The 12 point system was reviewed and apparent positive and negative per HPI. Past Medical History Past Medical History: No Reported History Additional Past Medical History / Comment(s): psuedo-seizures History of Any Multi-Drug Resistant Organisms: None Reported Past Surgical History: No Surgical Hx Reported Past Psychological History: No Psychological Hx Reported Smoking Status: Former smoker Past Alcohol Use History: None Reported Past Drug Use History: Marijuana - Past Family History Father History Unknown: Yes Additional Family Medical History / Comment(s): Pt was adopted. Mother Family Medical History: No Reported History Additional Family Medical History / Comment(s): Pt knows biological mother is healthy. Medications and Allergies Home Medications Medication Instructions Recorded Confirmed Type Escitalopram Oxalate [Lexapro] 10 mg PO DAILY 02/01/22 02/01/22 History Lacosamide [Vimpat] 50 mg PO BID 02/01/22 02/01/22 History OXcarbazepine [Trileptal] 300 mg PO BID 02/01/22 02/01/22 History Topiramate [Topamax] 100 mg PO BID 02/01/22 02/01/22 History busPIRone HCL 15 mg PO BID 02/01/22 02/01/22 History Allergies Allergy/AdvReac Type Severity Reaction Status Date / Time amoxicillin AdvReac Nausea & Verified 02/01/22 22:20 Vomiting & Diarrhea diphenhydramine AdvReac Nausea & Verified 02/01/22 22:20 [From Benadryl Allergy] Vomiting & Diarrhea Physical Examination - Vital Signs Vital Signs: Vital Signs Temp Pulse Resp BP Pulse Ox 02/02/22 03:15 74 16 121/80 99 02/01/22 23:29 94 16 113/76 98 02/01/22 20:53 118 H 16 117/71 98 02/01/22 18:31 99.4 F 128 H 16 113/68 100 Intake and Output 02/01/22 02/02/22 02/02/22 22:59 06:59 14:59 Other: Weight 68.039 kg GENERAL: The patient is lying in bed and is not in acute distress. CHEST: The heart rate is regular rate rhythm. No murmurs to auscultation. No carotid bruit bilaterally. LUNG: Clear to auscultation bilaterally no wheezing noted throughout. Not labor ed breathing. ABDOMEN/GI: Bowel sounds present in all 4 quadrants. No tenderness to palpation throughout. NEUROLOGICAL: Higher mental function: The patient is awake, alert, oriented to self, place and time. Patient is following commands. No aphasia and no neglect. Cranial nerves: The pupils are round, equal and reactive to light and accommodation. Visual holloway are full to confrontation throughout. Extraocular movement is intact no nystagmus is noted. Facial sensation is normal to touch throughout. The facial strength is normal throughout. Hearing is normal bilaterally to hand rub. Tongue is midline and moved [id number] without any difficulty. No dysarthria is noted. Shoulder shrug is normal bilaterally. Motor: Gait is deferred. The strength is 5 over 5 throughout. Normal tone and bulk. While examining the patient she had an episode of full body shake and was awake and was following commands and upon telling her to stop shaking she she started to calm down then started shaking again. Cerebellum: Normal finger to nose bilaterally. Sensation: Sensation is normal to touch throughout. Reflexes (right/left):2+ throughout. Plantars are downgoing bilaterally. Results - Laboratory Findings CBC and BMP: 02/01/22 19:06 02/02/22 05:52 Abnormal Lab Findings: Abnormal Labs 02/01/22 02/01/22 02/02/22 19:06 20:11 05:52 Potassium 3.4 L 3.4 L Chloride 112 H 112 H Carbon Dioxide 12 L 19 L Glucose 112 H Urine Appearance Cloudy H Urine Protein Trace H Urine Ketones Trace H Ur Leukocyte Esterase Large H Urine WBC 9 H Ur Squamous Epith Cells 12 H Urine Bacteria Rare H Urine Mucus Rare H U Benzodiazepines Scrn Detected H Assessment and Plan Assessment: Seizure-like episodes in the past couple days. On examination she had a psuedo- seizure events to me as well to nurse. History of reported seizure and pseudoseizures. She is on 3 antiepileptic drugs started in the last 1-3 months Anxiety Plan: I ordered a routine EEG. In the ED the patient was given a total of 2 mg of Ativan and was started on 0.5 mg IV every 6 hours for anxiety. She was restarted on her home dose of Topamax 100 mg 1 tablet twice a day, Vimp at 50mg 1 tablet twice a day 8 and the Trileptal 300 mg 1 tablet twice a day. I will not modify her medication. Cannot get MRI Brain since piercing (patient stated she cannot take them off). I recommend the patient to be taken off buspirone and switched to a different medication, since can lower seizure threshold. Every 4 hour neuro checks Placed on seizure precautions seizure pads I consulted Psychiatry team for her anxiety and medication modification. ED team consulted cardiology. We'll defer the rest of medical management as an outpatient Upon discharge recommend the patient to follow-up with a neurologist within 1-2 weeks. Per [place] DMV, patient cannot drive for 6 month until her seizure-like episodes are free. To avoid heights, swim unassisted and avoid heights. The plan is discussed with the patient and her nurse. Thank you for the consultation. UPDATE: The patient had routine EEG and preliminary read: Her episodes were captured and seemed non-epileptic in nature. Recommend Epilepsy Monitoring Unit (EMU) as outpatient to delineate whether she has any epileptic episodes and if none recommend to titrate the medication. Patient to follow-up with her neurologist (Dr. Peck). No further neurological work-up. Raffy Spain M.D. Neuro-hospitalist Time with Patient: Greater than 30
--- NOTE | 2022-02-02 10:30 | P.CRDCN ---
History of Present Illness Consult date: 02/02/22 History of present illness: HISTORY OF PRESENT ILLNESS: This is a 26-year-old female with a past medical history significant for pseudoseizures and anxiety. Patient does not follow with a core composer feeder. We have been asked to see the patient in consultation for abnormal EKG. Patient examined at the bedside. Patient denies any complaints of chest pain or pressure. She denies shortness of breath. The patient was having what appeared to be pseud oseizures during our examination. She was able to follow commands during her seizure and stick out her tongue when told to. * EKG reveals sinus mechanism with ST depression in lateral leads. Seen pr eviously EKG. * Brain CT: Negative for acute process * Laboratory data: WBC 4.8. Hemoglobin 12.8. Platelet count 228. Sodium 138. Potassium 3.4. BUN 12. Creatinine 0.96. Troponin negative 1. * Current home cardiac medications include none REVIEW OF SYSTEMS: At the time of my exam: CONSTITUTIONAL: Denies fever or chills. HEENT: Denies blurred vision, vision changes, or eye pain. Denies hemoptysis CARDIOVASCULAR: Denies chest pain. Denies orthopnea. Denies PND. Denies palpitations RESPIRATORY: Denies shortness of breath. GASTROINTESTINAL: Denies abdominal pain. Denies nausea or vomiting. HEMATOLOGIC: Denies bleeding disorders. GENITOURINARY: Denies any blood in urine. SKIN: Denies pruitis. Denies rash. PHYSICAL EXAM: VITAL SIGNS: Reviewed. GENERAL: Well-developed in no acute distress. HEENT: Head is normocephalic. Pupils are equal, round. Sclerae anicteric. Mucous membranes of the mouth are moist. Neck supple. No JVD or thyromegaly LUNGS: Respirations even and unlabored. Lungs essentially clear to auscultation bilaterally. HEART: Regular rate and rhythm. S1 and S2 heard. ABDOMEN: Soft. Nondistended. Nontender. EXTREMITIES: Normal range of motion. No clubbing or cyanosis. Peripheral pulses intact. No lower extremity edema NEUROLOGIC: Awake and alert. Oriented x 3. ASSESSMENT: Possible seizure History of reports seizures/pseudoseizures Abnormal EKG, no signs of ACS Anxiety PLAN: Patient is stable from a cardiac standpoint No further workup required We will sign off. Please reconsult if needed Nurse practitioner note has been reviewed by physician. Signing provider agrees with the documented findings, assessment, and plan of care. Past Medical History Past Medical History: No Reported History Additional Past Medical History / Comment(s): psuedo-seizures History of Any Multi-Drug Resistant Organisms: None Reported Past Surgical History: No Surgical Hx Reported Past Psychological History: No Psychological Hx Reported Smoking Status: Former smoker Past Alcohol Use History: None Reported Past Drug Use History: Marijuana Medications and Allergies Home Medications Medication Instructions Recorded Confirmed Type Escitalopram Oxalate [Lexapro] 10 mg PO DAILY 02/01/22 02/01/22 History Lacosamide [Vimpat] 50 mg PO BID 02/01/22 02/01/22 History OXcarbazepine [Trileptal] 300 mg PO BID 02/01/22 02/01/22 History Topiramate [Topamax] 100 mg PO BID 02/01/22 02/01/22 History busPIRone HCL 15 mg PO BID 02/01/22 02/01/22 History Allergies Allergy/AdvReac Type Severity Reaction Status Date / Time amoxicillin AdvReac Nausea & Verified 02/01/22 22:20 Vomiting & Diarrhea diphenhydramine AdvReac Nausea & Verified 02/01/22 22:20 [From Benadryl Allergy] Vomiting & Diarrhea Physical Exam Vitals: Vital Signs Temp Pulse Resp BP Pulse Ox 02/02/22 09:20 98 12 118/75 100 02/02/22 03:15 74 16 121/80 99 02/01/22 23:29 94 16 113/76 98 02/01/22 20:53 118 H 16 117/71 98 02/01/22 18:31 99.4 F 128 H 16 113/68 100 Intake and Output 02/01/22 02/02/22 02/02/22 22:59 06:59 14:59 Other: Weight 68.039 kg Results 02/01/22 19:06 02/02/22 05:52 Cardiac Enzymes 02/01/22 02/01/22 Range/Units 19:06 19:06 AST 27 (14-36) U/L Troponin I <0.012 (0.000-0.034) ng/mL CBC 02/01/22 Range/Units 19:06 WBC 4.8 (3.8-10.6) k/uL RBC 4.10 (3.80-5.40) m/uL Hgb 12.8 (11.4-16.0) gm/dL Hct 38.5 (34.0-46.0) % Plt Count 228 (150-450) k/uL Comprehensive Metabolic Panel 02/01/22 02/02/22 Range/Units 19:06 05:52 Sodium 139 138 (137-145) mmol/L Potassium 3.4 L 3.4 L (3.5-5.1) mmol/L Chloride 112 H 112 H (98-107) mmol/L Carbon Dioxide 12 L 19 L (22-30) mmol/L BUN 13 12 (7-17) mg/dL Creatinine 0.97 0.96 (0.52-1.04) mg/dL Glucose 112 H 96 (74-99) mg/dL Calcium 9.0 8.4 (8.4-10.2) mg/dL AST 27 (14-36) U/L ALT 15 (4-34) U/L Alkaline Phosphatase 53 (38-126) U/L Total Protein 7.6 (6.3-8.2) g/dL Albumin 4.2 (3.5-5.0) g/dL Current Medications Generic Name Dose Route Start Last Admin Trade Name Freq PRN Reason Stop Dose Admin Acetaminophen 650 mg 02/01/22 22:24 Acetaminophen Tab 325 Mg Tab PO Q6HR PRN Mild Pain or Fever > 100.5 Buspirone HCl 15 mg 02/01/22 23:30 02/02/22 09:18 Buspirone Hcl 5 Mg Tab PO 15 mg BID JACKIE Administration Escitalopram Oxalate 10 mg 02/02/22 09:00 02/02/22 09:18 Escitalopram 10 Mg Tab PO 10 mg DAILY JACKIE Administration Sodium Chloride 1,000 mls @ 75 mls/hr 02/01/22 22:30 02/01/22 23:27 Saline 0.9% IV 75 mls/hr .[id number] JACKIE Administration Lacosamide 50 mg 02/01/22 23:30 02/02/22 09:18 Lacosamide 50 Mg Tablet PO 50 mg BID JACKIE Administration Lorazepam 0.5 mg 02/01/22 22:24 Lorazepam 2 Mg/Ml Inj IV Q6HR PRN Anxiety Naloxone HCl 0.2 mg 02/01/22 22:24 Naloxone 0.4 Mg/Ml 1 Ml Vial IV Q2M PRN Opioid Reversal Oxcarbazepine 300 mg 02/01/22 23:30 02/02/22 09:18 Oxcarbazepine 300 Mg Tab PO 300 mg BID JACKIE Administration Topiramate 100 mg 02/01/22 23:30 02/02/22 09:18 Topiramate 100 Mg Tab PO 100 mg BID JACKIE Administration Intake and Output 02/01/22 02/02/22 02/02/22 22:59 06:59 14:59 Other: Weight 68.039 kg 02/01/22 19:06 02/02/22 05:52
[2022-02-02] MEDS ORDERED: ONDANSETRON 4 MG/2 ML VIAL IVP PRN (11:07)
[2022-02-02] MEDS ORDERED: LACTULOSE 20 GM/30 ML CUP PO PRN (11:07)
[2022-02-02] MEDS ORDERED: CALCIUM CARBONATE 500 MG CHEWABLE PO PRN (11:07)
[2022-02-02] MEDS ORDERED: ENOXAPARIN 40 MG/0.4 ML SYRINGE SQ SCH (11:15)
[2022-02-02 11:17] VITALS: TEMP 98.4
[2022-02-02 12:36] VITALS: BP 120/69; PULSE 100; RESP 22
[2022-02-02] MEDS ORDERED: POTASSIUM CHLORIDE ER 20 MEQ TAB.ER PO STA (13:49)
--- NOTE | 2022-02-02 13:55 | P.HPIM ---
History of Present Illness H&P Date: 02/02/22 Chief Complaint: Seizure I'm rounding for Dr. Javier Grayson. This is a 26-year-old patient, follows with Dr. Javier Grayson. Neurologist is Dr. Hernández. 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 She patient now presents with increasing frequency of these episodes especially in the last 1 week. She describes these as h eadshaking sometime the limbs or shaking some of the body shaking. Sometimes she'll become confused. Denies any fever and chills. She is employed. Does smoke a few cigarettes a day. Occasional marijuana. Denies any other drugs. No head injury. Review of systems: GEN.: None EYES: None HEENT: None NECK: None RESPIRATORY: None CARDIOVASCULAR: None GASTROINTESTINAL: None GENITOURINARY: None MUSCULOSKELETAL: None LYMPHATICS: None HEMATOLOGICAL: None PSYCHIATRY: Anxiety depression NEUROLOGICAL: As above Past medical history to include: Anxiety, depression, pseudoseizures, questionable seizure Social history: Lives with her fianc. Works in of [employer]. Smokes 2 cigarettes a day. Occasional marijuana. No alcohol. Family history: Patient adopted Physical examination: VITAL SIGNS: 98.4, 93, 12, 120/69, 98% room air GENERAL: BMI 25.7, laying in bed, awake, comfortable. EYES: Pupils equal. Conjunctiva normal. HEENT: External appearance of nose and ears normal, oral cavity grossly normal. Several tattoos NECK: JVD not raised; masses not palpable. HEART: First and second heart sounds are normal; no edema. LUNGS: Respiratory rate normal; clear to auscultation. ABDOMEN: Soft, nontender, liver spleen not palpable, no masses palpable. PSYCH: Alert and oriented x3; mood and affect normal. MUSCULOSKELETAL:No Clubbing/cyanosis;muscles-grossly intact NEUROLOGICAL: Cranial nerves grossly intact; no facial asymmetry, power and sensation grossly intact. LYMPHATICS: No lymph nodes palpable in the axilla and neck INVESTIGATIONS, reviewed in the clinical context: White count 4.8 hemoglobin 12.8 platelets 228 potassium 3.4 creatinine 0.96 UA: Contaminated Urine drug screen positive for benzodiazepine EKG tracing personally reviewed by me-normal sinus rhythm. Heart rate 105, some ST depression Computed tomography scan of the brain: Unremarkable Assessment and plan: -Patient presents with multiple episodes of seizure-like activity. She has known pseudoseizures. Patient is on 3 antipeptic drugs. Neurology ordered a EEG. Neuro checks. -Hypokalemia Replace potassium -Anxiety and depression BuSpar 50 mg twice a day, Lexapro 10 mg daily. Seizure precautions. EEG. Home medications continue. Consultation to psychiatry and neurology. Replace potassium Past Medical History Past Medical History: Seizure Disorder Additional Past Medical History / Comment(s): psuedo-seizures since age 14 yrs. History of Any Multi-Drug Resistant Organisms: None Reported Past Surgical History: No Surgical Hx Reported Additional Past Surgical History / Comment(s): L eye surgery for strabismus Past Anesthesia/Blood Transfusion Reactions: No Reported Reaction Smoking Status: Current every day smoker, Light tobacco smoker - Past Family History Father History Unknown: Yes Additional Family Medical History / Comment(s): Pt was adopted. Mother Family Medical History: No Reported History Additional Family Medical History / Comment(s): Pt knows biological mother is healthy. Medications and Allergies Home Medications Medication Instructions Recorded Confirmed Type Escitalopram Oxalate [Lexapro] 10 mg PO DAILY 02/01/22 02/01/22 History Lacosamide [Vimpat] 50 mg PO BID 02/01/22 02/01/22 History OXcarbazepine [Trileptal] 300 mg PO BID 02/01/22 02/01/22 History Topiramate [Topamax] 100 mg PO BID 02/01/22 02/01/22 History busPIRone HCL 15 mg PO BID 02/01/22 02/01/22 History Allergies Allergy/AdvReac Type Severity Reaction Status Date / Time amoxicillin AdvReac Nausea & Verified 02/01/22 22:20 Vomiting & Diarrhea diphenhydramine AdvReac Nausea & Verified 02/01/22 22:20 [From Benadryl Allergy] Vomiting & Diarrhea Physical Exam Vitals: Vital Signs Temp Pulse Pulse Resp BP BP Pulse Ox 02/02/22 12:11 98.4 F 100 22 120/69 98 02/02/22 11:15 98.4 F 93 12 97/87 100 02/02/22 09:20 98 12 118/75 100 02/02/22 03:15 74 16 121/80 99 02/01/22 23:29 94 16 113/76 98 02/01/22 20:53 118 H 16 117/71 98 02/01/22 18:31 99.4 F 128 H 16 113/68 100 Intake and Output 02/01/22 02/02/22 02/02/22 22:59 06:59 14:59 Other: Weight 68.039 kg 68.039 kg Results CBC & Chem 7: 02/01/22 19:06 02/02/22 05:52 Labs: Abnormal Lab Results - Last 24 Hours (Table) 02/01/22 02/01/22 02/02/22 Range/Units 19:06 20:11 05:52 Potassium 3.4 L 3.4 L (3.5-5.1) mmol/L Chloride 112 H 112 H (98-107) mmol/L Carbon Dioxide 12 L 19 L (22-30) mmol/L Glucose 112 H (74-99) mg/dL Urine Appearance Cloudy H (Clear) Urine Protein Trace H (Negative) Urine Ketones Trace H (Negative) Ur Leukocyte Esterase Large H (Negative) Urine WBC 9 H (0-5) /hpf Ur Squamous Epith Cells 12 H (0-4) /hpf Urine Bacteria Rare H (None) /hpf Urine Mucus Rare H (None) /hpf U Benzodiazepines Scrn Detected H (NotDetected) Thrombosis Risk Factor Assmnt - Choose All That Apply Any of the Below Risk Factors Present?: Yes Each Factor Represents 1 point: Medical pt on bed rest Other Risk Factors: Yes Each Risk Factor Represents 2 Points: Patient confined to bed Other congenital or acquired thrombophilia - If yes, enter type in comment: No Thrombosis Risk Factor Assessment Total Risk Factor Score: 3 Thrombosis Risk Factor Assessment Level: Moderate Risk
--- NOTE | 2022-02-02 14:01 | P.DS ---
Providers Date of admission: 02/01/22 22:24 Expected date of discharge: 02/02/22 Attending physician: Javier Grayson Consults: 02/01/22 22:25 Consult Physician Routine Consulting Provider: Raffy Spain Consult Reason/Comments: seizure v pseudoseizure Do you want consulting provider notified?: Yes 02/02/22 09:24 Consult Physician Routine Consulting Provider: Cosmo Moy Consult Reason/Comments: anxiety and pseudoseizure,medication modification Do you want consulting provider notified?: Yes Primary care physician: Javier Grayson [facility] Course: Chief Complaint: Seizure I'm rounding for Dr. Javier Grayson. This is a 26-year-old patient, follows with Dr. Javier Grayson. Neurologist is Dr. Hernández. 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 She patient now presents with increasing frequency of these episodes especially in the last 1 week. She describes these as headshaking sometime the limbs or shaking some of the body shaking. Sometimes she'll become confused. Denies any fever and chills. She is employed. Does smoke a few cigarettes a day. Occasional marijuana. Denies any other drugs. No head injury. I discussed with Dr. Spain from neurology. No change in medications. Follow-up with her neurologist outpatient. No driving. Patient also seen by psychiatrist. No change of medications currently. EEG was reported to be unremarkable. Past medical history to include: Anxiety, depression, pseudoseizures, questionable seizure Social history: Lives with her fianc. 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 Smokes 2 cigarettes a day. Occasional marijuana. No alcohol. Family history: Patient adopted Physical examination: VITAL SIGNS: GENERAL: BMI 25.7, laying in bed, awake, comfortable. EYES: Pupils equal. Conjunctiva normal. HEENT: External appearance of nose and ears normal, oral cavity grossly normal. Several tattoos NECK: JVD not raised; masses not palpable. HEART: First and second heart sounds are normal; no edema. LUNGS: Respiratory rate normal; clear to auscultation. ABDOMEN: Soft, nontender, liver spleen not palpable, no masses palpable. PSYCH: Alert and oriented x3; mood and affect normal. MUSCULOSKELETAL:No Clubbing/cyanosis;muscles-grossly intact NEUROLOGICAL: Cranial nerves grossly intact; no facial asymmetry, power and sensation grossly intact. LYMPHATICS: No lymph nodes palpable in the axilla and neck INVESTIGATIONS, reviewed in the clinical context: White count 4.8 hemoglobin 12.8 platelets 228 potassium 3.4 creatinine 0.96 UA: Contaminated Urine drug screen positive for benzodiazepine EKG tracing personally reviewed by me-normal sinus rhythm. Heart rate 105, some ST depression Computed tomography scan of the brain: Unremarkable Assessment and plan: -Patient presents with multiple episodes of seizure-like activity. She has known pseudoseizures. Patient is on 3 antipeptic drugs. EEG unremarkable -Hypokalemia Replace potassium -Anxiety and depression BuSpar 50 mg twice a day, Lexapro 10 mg daily. Disposition: Home Plan - Discharge Summary Discharge Rx Participant: No New Discharge Prescriptions: No Action OXcarbazepine [Trileptal] 300 mg PO BID busPIRone HCL 15 mg PO BID Escitalopram Oxalate [Lexapro] 10 mg PO DAILY Topiramate [Topamax] 100 mg PO BID Lacosamide [Vimpat] 50 mg PO BID Discharge Medication List Escitalopram Oxalate [Lexapro] 10 mg PO DAILY 02/01/22 [History] Lacosamide [Vimpat] 50 mg PO BID 02/01/22 [History] OXcarbazepine [Trileptal] 300 mg PO BID 02/01/22 [History] Topiramate [Topamax] 100 mg PO BID 02/01/22 [History] busPIRone HCL 15 mg PO BID 02/01/22 [History] Follow up Appointment(s)/Referral(s): Javier Grayson MD [Primary Care Provider] - 1-2 days Patient Instructions/Handouts: Seizure/Epilepsy Discharge Instructions & Follow-Up
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
--- NOTE | 2022-02-02 17:25 | EEG ---
ELECTROENCEPHALOGRAM REPORT DATE OF SERVICE: 02/02/2022. CLINICAL HISTORY: This is a 26-year-old woman with history of seizure that reports increasing in frequency. The video EEG is obtained to evaluated for seizure and epileptiform discharges. RELEVANT MEDICATION: The patient on Topamax, Vimpat, Trileptal. EEG TYPE: A routine 21-channel EEG is performed with video using the 10/20 electrode placement system. DESCRIPTION: Only wakefulness is obtained. During awake state, the posterior-dominant rhythm consists of low to moderate voltage that is well modulated and well sustained of 8.5 to 9 hertz. There is no physiological stage II sleep architecture. There is no focal slowing. Interictal and ictal: During the study the patient had multiple episodes of jerking of all extremities. During these episodes, she was able to suppress her episodes with support and relaxation. Electrographically there was no correlate for EEG. An example is at 10:50 she had jerking of all extremities lasting for 45 seconds. These episodes are non-epileptic in nature. ACTIVATION PROCEDURE: Photic stimulation are hyperventilation are not performed. CLINICAL INTERPRETATION: This is a normal routine EEG. There is no focal slowing, epileptiform discharge or seizure on the EEG. During the study the patient had multiple episodes that are captured and they are non-epileptic in nature. Clinical correlation is recommended. MMBIJALL / SCOOBYN: [id number] / [id number]
== END 2022-02-02 16:10 | disposition home or self-care (01) ==
LOC: EC 18:10 → 6NMEDSUR 22:24
PROVIDERS: ADMIT Family Medicine; ATTEND Family Medicine
DX: R56.9 Unspecified convulsions (principal); E87.6 Hypokalemia; F41.9 Anxiety disorder, unspecified; F32.A Depression, unspecified; R55 Syncope and collapse; F43.10 Post-traumatic stress disorder, unspecified; F60.3 Borderline personality disorder; F17.210 Nicotine dependence, cigarettes, uncomplicated; R00.0 Tachycardia, unspecified; R94.31 Abnormal electrocardiogram [ECG] [EKG]; Z56.3 Stressful work schedule; Z59.89 Other problems related to housing and economic circumstances; Z62.810 Personal history of physical and sexual abuse in childhood; Z91.51 Personal history of suicidal behavior; Z87.828 Personal history of other (healed) physical injury and trauma; Z79.899 Other long term (current) drug therapy; Z88.0 Allergy status to penicillin; Z88.8 Allergy status to other drugs, medicaments and biological substances; Z74.01 Bed confinement status; Z71.9 Counseling, unspecified
CPT/HCPCS: 96376; 96374; 99285; 36415; 95816; 93005; 80156; 80053; 80048; 83735; 84484; 85025; 81001; 80306; 70450; G0378 ×2; G0480; J2060; 80320

== ENCOUNTER 2022-05-19 14:41 | Emergency (ER) | payer OTHER ==
[2022-05-19 15:04] LABS: Basophils # (A) 0.1 k/uL (0-0.2); Basophils % (A) 2 %; Eosinophils # (A) 0.5 k/uL (0-0.7); Eosinophils % (A) 7 %; HGB 12.6 gm/dL (11.4-16.0); Lymphocytes # (A) 2.1 k/uL (1.0-4.8); Lymphocytes % (A) 33 %; MCH 31.5 pg (25.0-35.0); MCHC 32.3 g/dL (31.0-37.0); MCV 97.6 fL (80.0-100.0); Mean Platelet Volume 8.2; Monocytes # (A) 0.3 k/uL (0-1.0); Monocytes % (A) 4 %; Neutrophils # (A) 3.4 k/uL (1.3-7.7); Neutrophils % (A) 52 %; Platelet Count 271 k/uL (150-450); RBC 3.99 m/uL (3.80-5.40); RDW 12.6 % (11.5-15.5); WBC 6.5 k/uL (3.8-10.6)
[2022-05-19 15:13] LABS: African American GFR (CKD) 77 (>60 ml/min/1.73 sqM); Anion Gap 16 mmol/L; Blood Urea Nitrogen 13 mg/dL (7-17); Calcium 8.9 mg/dL (8.4-10.2); Carbon Dioxide 10 mmol/L (22-30); Chloride 113 mmol/L (98-107); Glucose 141 mg/dL (74-99); Non-African American GFR(CKD) 66 (>60 ml/min/1.73 sqM); Potassium 3.7 mmol/L (3.5-5.1); Sodium 139 mmol/L (137-145)
--- NOTE | 2022-05-19 15:13 | ED ---
General Adult HPI - General Chief complaint: Seizure Stated complaint: seizures Time Seen by Provider: 05/19/22 14:50 Source: EMS Mode of arrival: EMS Limitations: no limitations - History of Present Illness Initial comments: Dictation was produced using [employer] dictation software. please excuse any grammatical, word or spelling errors. Chief Complaint: 26-year-old female with past medical history of epileptic seizures and pseudoseizures presents to the emergency department after seizures History of Present Illness: She is 26-year-old female she has past medical history of seizures. 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 She is on multiple seizure medications provided by neurologist, Dr. Blair from [facility]. Patient was on her way to Dr. Grayson's office for a follow-up when patient had a seizure. EMS was called and while en route to the emergency department patient had another seizure. Patient states she takes multiple antiepileptic medications. As reports that patient had full extensor posturing or seizure. She is given 5 mg IM Versed with cessation of seizure. It is unclear if patient had a postictal state. Upon my evaluation patient is alert and oriented 3. Mother is at the bedside and will help provide history of present illness. Patient feels a little lightheaded and dizzy however has no other complaints. The ROS documented in this emergency department record has been reviewed and confirmed by me. Those systems with pertinent positive or negative responses have been documented in the HPI. All other systems are other negative and/or noncontributory. PHYSICAL EXAM: General Impression: Alert and oriented x3, not in acute distress HEENT: Normocephalic atraumatic, extra-ocular movements intact, pupils equal and reactive to light bilaterally, mucous membranes moist. Cardiovascular: Heart regular rate and rhythm Chest: Able to complete full sentences, no retractions, no tachypnea Abdomen: abdomen soft, non-tender, non-distended, no organomegaly Musculoskeletal: Pulses present and equal in all extremities, no peripheral edema Motor: no focal deficits noted Neurological: CN II-XII grossly intact, no focal motor or sensory deficits noted Skin: Intact with no visualized rashes Psych: Normal affect and mood ED course: 26-year-old female presents to the emergency department after seizures. Patient has history of psychogenic seizures. She chart review shows that in January she was admitted to the hospital and had a EEG MRI workup that was unremarkable. She is being evaluated by psychiatry. As upon arrival shows temperature 100.0, heart rate of 124, rest of vital signs within acceptable limits. Lavatory evaluation obtained. CBC unremarkable. Metabolic panel shows bicarb of 10, lactic acidosis of 8.7. This suggests that patient likely had an elective genic seizure. She states that she gets seizures often and she doesn't normally come to the emergency department. Patient would like to be discharged. She has close outpatient follow up with neurologist. Patient is agreeable to plan to be disposition under the care of her mother. She is well-appearing and feels at baseline currently. - Related Data Home Medications Medication Instructions Recorded Confirmed Escitalopram Oxalate [Lexapro] 10 mg PO DAILY 02/01/22 02/01/22 Lacosamide [Vimpat] 50 mg PO BID 02/01/22 02/01/22 OXcarbazepine [Trileptal] 300 mg PO BID 02/01/22 02/01/22 Topiramate [Topamax] 100 mg PO BID 02/01/22 02/01/22 busPIRone HCL 15 mg PO BID 02/01/22 02/01/22 Allergies Allergy/AdvReac Type Severity Reaction Status Date / Time amoxicillin AdvReac Nausea & Verified 02/01/22 22:20 Vomiting & Diarrhea diphenhydramine AdvReac Nausea & Verified 02/01/22 22:20 [From Benadryl Allergy] Vomiting & Diarrhea Review of Systems ROS Statement: Those systems with pertinent positive or pertinent negative responses have been documented in the HPI. ROS Other: All systems not noted in ROS Statement are negative. Past Medical History Past Medical History: No Reported History Additional Past Medical History / Comment(s): psuedo-seizures History of Any Multi-Drug Resistant Organisms: None Reported Past Surgical History: No Surgical Hx Reported Additional Past Surgical History / Comment(s): L eye surgery for strabismus Past Anesthesia/Blood Transfusion Reactions: No Reported Reaction Past Psychological History: No Psychological Hx Reported Smoking Status: Former smoker Past Alcohol Use History: None Reported Past Drug Use History: Marijuana - Past Family History Father History Unknown: Yes Additional Family Medical History / Comment(s): Pt was adopted. Mother Family Medical History: No Reported History Additional Family Medical History / Comment(s): Pt knows biological mother is healthy. General Exam Limitations: no limitations Course Vital Signs 05/19/22 14:45 Temperature 100.0 F H Pulse Rate 124 H Respiratory 20 Rate Blood Pressure 131/83 O2 Sat by Pulse 98 Oximetry Medical Decision Making - Lab Data Result diagrams: 05/19/22 14:59 05/19/22 14:59 Lab Results 05/19/22 05/19/22 05/19/22 Range/Units 14:59 14:59 14:59 WBC 6.5 (3.8-10.6) k/uL RBC 3.99 (3.80-5.40) m/uL Hgb 12.6 (11.4-16.0) gm/dL Hct 39.0 (34.0-46.0) % MCV 97.6 (80.0-100.0) fL MCH 31.5 (25.0-35.0) pg MCHC 32.3 (31.0-37.0) g/dL RDW 12.6 (11.5-15.5) % Plt Count 271 (150-450) k/uL MPV 8.2 Neutrophils % 52 % Lymphocytes % 33 % Monocytes % 4 % Eosinophils % 7 % Basophils % 2 % Neutrophils # 3.4 (1.3-7.7) k/uL Lymphocytes # 2.1 (1.0-4.8) k/uL Monocytes # 0.3 (0-1.0) k/uL Eosinophils # 0.5 (0-0.7) k/uL Basophils # 0.1 (0-0.2) k/uL Sodium 139 (137-145) mmol/L Potassium 3.7 (3.5-5.1) mmol/L Chloride 113 H (98-107) mmol/L Carbon Dioxide 10 L (22-30) mmol/L Anion Gap 16 mmol/L BUN 13 (7-17) mg/dL Creatinine 1.14 H (0.52-1.04) mg/dL Est GFR (CKD-EPI)AfAm 77 (>60 ml/min/1.73 sqM) Est GFR (CKD-EPI)NonAf 66 (>60 ml/min/1.73 sqM) Glucose 141 H (74-99) mg/dL Plasma Lactic Acid Rob[place] 8.7 H* (0.7-2.0) mmol/L Calcium 8.9 (8.4-10.2) mg/dL Magnesium 2.0 (1.6-2.3) mg/dL Disposition Clinical Impression: Recurrent seizures Disposition: HOME SELF-CARE Condition: Good Instructions (If sedation given, give patient instructions): Recurrent Seizures in Adults (ED) Is patient prescribed a controlled substance at d/c from ED?: No Referrals: Javier Grayson MD [Primary Care Provider] - 1-2 days Time of Disposition: 15:26
[2022-05-19 15:29] LABS: HCG,Quantitative Serum <2.4 mIU/mL
[2022-05-19 15:46] VITALS: BP 122/78; PULSE 92; RESP 18; TEMP 99.9
== END 2022-05-19 15:45 | disposition home or self-care (01) ==
LOC: EC 14:41
DX: R56.9 Unspecified convulsions (principal); Z87.891 Personal history of nicotine dependence; Z88.0 Allergy status to penicillin; Z88.8 Allergy status to other drugs, medicaments and biological substances; Z20.822 Contact with and (suspected) exposure to COVID-19
CPT/HCPCS: 36415; 80048; 83605; 83735; 84702; 85025; 87636; 93005; 99285

== ENCOUNTER 2022-06-08 20:52 | Emergency (ER) | payer OTHER ==
[2022-06-08 21:04] VITALS: RESP 16
--- NOTE | 2022-06-08 21:22 | ED ---
Seizure HPI - General Chief Complaint: Seizure Stated Complaint: Seizure Time Seen by Provider: 06/08/22 21:05 Source: EMS Mode of arrival: EMS Limitations: altered mental status - History of Present Illness Initial Comments: This patient is a 26-year-old woman who reportedly has history of seizure disorder, brought to have evaluation of suspected seizure. EMS report was that they were called about seizure activity. They found the patient having eye twitching and then she reportedly developed generalized tonic-clonic activity. They did administer Versed reportedly 10 mg IM and the seizure activity stopped. Patient is appearing sedated and not able to give any additional history here. MD Complaint: seizure -: minutes(s) Description of Episode: tonic-clonic movement -: second(s) Witnessed: yes - by bystander Trauma: No Seizure History: known seizure disorder Place: home Treatments Prior to Arrival: benzodiazepines - Related Data Home Medications Medication Instructions Recorded Confirmed Escitalopram Oxalate [Lexapro] 10 mg PO DAILY 02/01/22 02/01/22 Lacosamide [Vimpat] 50 mg PO BID 02/01/22 02/01/22 OXcarbazepine [Trileptal] 300 mg PO BID 02/01/22 02/01/22 Topiramate [Topamax] 100 mg PO BID 02/01/22 02/01/22 busPIRone HCL 15 mg PO BID 02/01/22 02/01/22 Previous Rx's Medication Instructions Recorded Nitrofurantoin Monohyd/M-Cryst 100 mg PO Q12HR #6 cap 06/09/22 [Macrobid] Potassium Chloride [Klor-Con 20 20 meq PO DAILY #7 packet 06/09/22 Packets] Allergies Allergy/AdvReac Type Severity Reaction Status Date / Time amoxicillin AdvReac Nausea & Verified 02/01/22 22:20 Vomiting & Diarrhea diphenhydramine AdvReac Nausea & Verified 02/01/22 22:20 [From Benadryl Allergy] Vomiting & Diarrhea Review of Systems ROS Statement: Those systems with pertinent positive or pertinent negative responses have been documented in the HPI. ROS Other: All systems not noted in ROS Statement are negative. Limitations: ROS unobtainable due to patients medical condition Past Medical History Past Medical History: Seizure Disorder Additional Past Medical History / Comment(s): psuedo-seizures History of Any Multi-Drug Resistant Organisms: None Reported Past Surgical History: No Surgical Hx Reported Additional Past Surgical History / Comment(s): L eye surgery for strabismus Past Anesthesia/Blood Transfusion Reactions: No Reported Reaction Past Psychological History: No Psychological Hx Reported Smoking Status: Former smoker Past Alcohol Use History: None Reported Past Drug Use History: Marijuana - Past Family History Father History Unknown: Yes Additional Family Medical History / Comment(s): Pt was adopted. Mother Family Medical History: No Reported History Additional Family Medical History / Comment(s): Pt knows biological mother is healthy. General Exam Limitations: no limitations General appearance: obtunded Head exam: Present: atraumatic, normocephalic Eye exam: Present: normal appearance, PERRL, EOMI Neck exam: Present: normal inspection. Absent: tenderness, meningismus Respiratory exam: Present: normal lung sounds bilaterally. Absent: respiratory distress, wheezes, rales, rhonchi, stridor Cardiovascular Exam: Present: regular rate, normal rhythm, normal heart sounds. Absent: systolic murmur, diastolic murmur, rubs, gallop GI/Abdominal exam: Present: soft. Absent: distended, tenderness, guarding, rebound, rigid, mass Extremities exam: Present: normal inspection, normal capillary refill. Absent: pedal edema, calf tenderness Back exam: Present: normal inspection Neurological exam: Present: altered, CN II-XII intact, reflexes normal Skin exam: Present: warm, dry, intact, normal color. Absent: rash Course Vital Signs 06/08/22 06/08/22 20:55 23:17 Temperature 97.9 F Pulse Rate 71 46 L Respiratory 16 16 Rate Blood Pressure 97/62 97/59 O2 Sat by Pulse 99 100 Oximetry Medical Decision Making - Lab Data Result diagrams: 06/09/22 00:25 06/09/22 00:25 Lab Results 06/09/22 06/09/22 06/09/22 Range/Units 00:20 00:20 00:25 WBC 3.9 (3.8-10.6) k/uL RBC 3.69 L (3.80-5.40) m/uL Hgb 12.0 (11.4-16.0) gm/dL Hct 35.2 (34.0-46.0) % MCV 95.1 (80.0-100.0) fL MCH 32.4 (25.0-35.0) pg MCHC 34.0 (31.0-37.0) g/dL RDW 12.9 (11.5-15.5) % Plt Count 190 (150-450) k/uL MPV 10.1 Neutrophils % 59 % Lymphocytes % 29 % Monocytes % 6 % Eosinophils % 4 % Basophils % 1 % Neutrophils # 2.3 (1.3-7.7) k/uL Lymphocytes # 1.1 (1.0-4.8) k/uL Monocytes # 0.2 (0-1.0) k/uL Eosinophils # 0.2 (0-0.7) k/uL Basophils # 0.0 (0-0.2) k/uL Sodium (137-145) mmol/L Potassium (3.5-5.1) mmol/L Chloride (98-107) mmol/L Carbon Dioxide (22-30) mmol/L Anion Gap mmol/L BUN (7-17) mg/dL Creatinine (0.52-1.04) mg/dL Est GFR (CKD-EPI)AfAm (>60 ml/min/1.73 sqM) Est GFR (CKD-EPI)NonAf (>60 ml/min/1.73 sqM) Glucose (74-99) mg/dL Calcium (8.4-10.2) mg/dL Magnesium (1.6-2.3) mg/dL Total Bilirubin (0.2-1.3) mg/dL AST (14-36) U/L ALT (4-34) U/L Alkaline Phosphatase (38-126) U/L Total Protein (6.3-8.2) g/dL Albumin (3.5-5.0) g/dL Urine Color Yellow Urine Appearance Cloudy H (Clear) Urine pH 6.0 (5.0-8.0) Ur Specific [place] 1.027 (1.001-1.035) Urine Protein Trace H (Negative) Urine Glucose (UA) Negative (Negative) Urine Ketones 1+ H (Negative) Urine Blood Negative (Negative) Urine Nitrite Negative (Negative) Urine Bilirubin Negative (Negative) Urine Urobilinogen <2.0 (<2.0) mg/dL Ur Leukocyte Esterase Large H (Negative) Urine RBC 6 H (0-5) /hpf Urine WBC 75 H (0-5) /hpf Ur Squamous Epith Cells 17 H (0-4) /hpf Urine Bacteria Rare H (None) /hpf Hyaline Casts 1 (0-2) /lpf Urine Mucus Few H (None) /hpf Urine HCG, Qual Not Detected (Not Detectd) 06/09/22 Range/Units 00:25 WBC (3.8-10.6) k/uL RBC (3.80-5.40) m/uL Hgb (11.4-16.0) gm/dL Hct (34.0-46.0) % MCV (80.0-100.0) fL MCH (25.0-35.0) pg MCHC (31.0-37.0) g/dL RDW (11.5-15.5) % Plt Count (150-450) k/uL MPV Neutrophils % % Lymphocytes % % Monocytes % % Eosinophils % % Basophils % % Neutrophils # (1.3-7.7) k/uL Lymphocytes # (1.0-4.8) k/uL Monocytes # (0-1.0) k/uL Eosinophils # (0-0.7) k/uL Basophils # (0-0.2) k/uL Sodium 138 (137-145) mmol/L Potassium 3.1 L (3.5-5.1) mmol/L Chloride 109 H (98-107) mmol/L Carbon Dioxide 20 L (22-30) mmol/L Anion Gap 9 mmol/L BUN 13 (7-17) mg/dL Creatinine 0.99 (0.52-1.04) mg/dL Est GFR (CKD-EPI)AfAm >90 (>60 ml/min/1.73 sqM) Est GFR (CKD-EPI)NonAf 79 (>60 ml/min/1.73 sqM) Glucose 95 (74-99) mg/dL Calcium 8.5 (8.4-10.2) mg/dL Magnesium 1.9 (1.6-2.3) mg/dL Total Bilirubin 0.4 (0.2-1.3) mg/dL AST 18 (14-36) U/L ALT 9 (4-34) U/L Alkaline Phosphatase 63 (38-126) U/L Total Protein 6.8 (6.3-8.2) g/dL Albumin 3.8 (3.5-5.0) g/dL Urine Color Urine Appearance (Clear) Urine pH (5.0-8.0) Ur Specific [place] (1.001-1.035) Urine Protein (Negative) Urine Glucose (UA) (Negative) Urine Ketones (Negative) Urine Blood (Negative) Urine Nitrite (Negative) Urine Bilirubin (Negative) Urine Urobilinogen (<2.0) mg/dL Ur Leukocyte Esterase (Negative) Urine RBC (0-5) /hpf Urine WBC (0-5) /hpf Ur Squamous Epith Cells (0-4) /hpf Urine Bacteria (None) /hpf Hyaline Casts (0-2) /lpf Urine Mucus (None) /hpf Urine HCG, Qual (Not Detectd) - EKG Data -: EKG Interpreted by In EKG shows normal: sinus rhythm, axis (Normal), intervals (Normal), QRS complexes (Normal) Rate: normal (Rate 73 bpm) Interpretation: nonspecific ST-T wave changes Disposition Clinical Impression: Generalized seizure, Urinary tract infection Disposition: HOME SELF-CARE Condition: Good Instructions (If sedation given, give patient instructions): Seizure/Epilepsy Discharge Instructions & Follow-Up Prescriptions: Potassium Chloride [Klor-Con 20 Packets] 20 meq PO DAILY #7 packet Nitrofurantoin Monohyd/M-Cryst [Macrobid] 100 mg PO Q12HR #6 cap Is patient prescribed a controlled substance at d/c from ED?: No Referrals: None,Stated [Primary Care Provider] - 1-2 days Time of Disposition: 02:05
[2022-06-08 21:29] VITALS: TEMP 97.9
[2022-06-09 00:42] LABS: Basophils % (A) 1 %; Eosinophils # (A) 0.2 k/uL (0-0.7); Eosinophils % (A) 4 %; HCT 35.2 % (34.0-46.0); Lymphocytes # (A) 1.1 k/uL (1.0-4.8); Lymphocytes % (A) 29 %; MCH 32.4 pg (25.0-35.0); MCV 95.1 fL (80.0-100.0); Mean Platelet Volume 10.1; Monocytes # (A) 0.2 k/uL (0-1.0); Monocytes % (A) 6 %; Neutrophils # (A) 2.3 k/uL (1.3-7.7); Neutrophils % (A) 59 %; Platelet Count 190 k/uL (150-450); RBC 3.69 m/uL (3.80-5.40); RDW 12.9 % (11.5-15.5); WBC 3.9 k/uL (3.8-10.6)
[2022-06-09 01:03] LABS: ALT 9 U/L (4-34); AST 18 U/L (14-36); African American GFR (CKD) >90 (>60 ml/min/1.73 sqM); Albumin 3.8 g/dL (3.5-5.0); Alkaline Phosphatase 63 U/L (38-126); Anion Gap 9 mmol/L; Blood Urea Nitrogen 13 mg/dL (7-17); Calcium 8.5 mg/dL (8.4-10.2); Carbon Dioxide 20 mmol/L (22-30); Chloride 109 mmol/L (98-107); Glucose 95 mg/dL (74-99); Magnesium 1.9 mg/dL (1.6-2.3); Non-African American GFR(CKD) 79 (>60 ml/min/1.73 sqM); Potassium 3.1 mmol/L (3.5-5.1); Sodium 138 mmol/L (137-145); Total Bilirubin 0.4 mg/dL (0.2-1.3); Total Protein 6.8 g/dL (6.3-8.2)
[2022-06-09 01:36] LABS: Appearance,Urine Cloudy (Clear); Bacteria,Urine Rare /hpf; Bilirubin,Urine Negative (Negative); Blood,Urine Negative (Negative); Color,Urine Yellow; Glucose,Urine (UA) Negative (Negative); Hyaline Casts,Urine 1 /lpf (0-2); Ketones,Urine 1+ (Negative); Leukocyte Esterase,Urine Large (Negative); Mucus,Urine Few /hpf; Nitrite,Urine Negative (Negative); Protein,Urine Trace (Negative); RBC,Urine 6 /hpf (0-5); Specific Gravity,Urine 1.027 (1.001-1.035); Squamous Epithelial Cell,Urine 17 /hpf (0-4); Urobilinogen,Urine <2.0 mg/dL (<2.0); WBC,Urine 75 /hpf (0-5)
[2022-06-09 02:24] VITALS: BP 102/65; PULSE 68
== END 2022-06-09 02:24 | disposition home or self-care (01) ==
LOC: EC 20:52
DX: G40.909 Epilepsy, unspecified, not intractable, without status epilepticus (principal); N39.0 Urinary tract infection, site not specified; F12.90 Cannabis use, unspecified, uncomplicated; Z87.891 Personal history of nicotine dependence; Z79.899 Other long term (current) drug therapy
CPT/HCPCS: 36415; 80053; 81001; 81025; 83735; 85025; 93005; 99284

== ENCOUNTER 2022-06-11 15:15 | Emergency (ER) | payer OTHER ==
[2022-06-11] MEDS ORDERED: SODIUM CHLORIDE 0.9% 1,000 ML IV STA (15:29)
[2022-06-11] MEDS ORDERED: LORazepam 2 MG/ML INJ IM STA (15:30)
--- NOTE | 2022-06-11 15:34 | ED ---
General Adult HPI - General Chief complaint: Seizure Stated complaint: Seizure Time Seen by Provider: 06/11/22 15:29 Source: patient, family Mode of arrival: wheelchair Limitations: no limitations - History of Present Illness Initial comments: Patient presents to the ED with her boyfriend for evaluation. Per boyfriend, the patient has a history of seizure disorder, and he states that she has daily seizures. Boyfriend states that the patient's seizures have been more frequent today, particularly over the past hour or so. Boyfriend states that the patient has had about 5-10 seizures today. Patient had a generalized, tonic-clonic seizure on arrival to the ED, which spontaneously resolved after less than a minute. Patient currently complains of feeling fatigued. Patient states that she did not take her Xanax for the past week, but she took 1 dose of it today. Patient states that she has otherwise been taking her seizure medications regularly as prescribed, and she denies missing any doses or medication noncompliance. Patient denies having any pain, trauma or injury, fever or chills, headache, focal numbness/weakness/neuro deficit, visual changes, speech difficulty, neck/back/extremity pain, chest pain, dyspnea, cough or cold symptom s, palpitations, dizziness, abdominal pain, nausea/vomiting/diarrhea, dysuria or urinary symptoms, or any other symptoms or complaints. Patient denies illicit drug or alcohol use. - Related Data Home Medications Medication Instructions Recorded Confirmed Escitalopram Oxalate [Lexapro] 10 mg PO DAILY 02/01/22 02/01/22 Lacosamide [Vimpat] 50 mg PO BID 02/01/22 02/01/22 OXcarbazepine [Trileptal] 300 mg PO BID 02/01/22 02/01/22 Topiramate [Topamax] 100 mg PO BID 02/01/22 02/01/22 busPIRone HCL 15 mg PO BID 02/01/22 02/01/22 Previous Rx's Medication Instructions Recorded Nitrofurantoin Monohyd/M-Cryst 100 mg PO Q12HR #6 cap 06/09/22 [Macrobid] Potassium Chloride [Klor-Con 20 20 meq PO DAILY #7 packet 06/09/22 Packets] Allergies Allergy/AdvReac Type Severity Reaction Status Date / Time amoxicillin AdvReac Nausea & Verified 06/11/22 15:22 Vomiting & Diarrhea diphenhydramine AdvReac Nausea & Verified 06/11/22 15:22 [From Benadryl Allergy] Vomiting & Diarrhea Review of Systems ROS Statement: Those systems with pertinent positive or pertinent negative responses have been documented in the HPI. ROS Other: All systems not noted in ROS Statement are negative. Past Medical History Past Medical History: Seizure Disorder Additional Past Medical History / Comment(s): psuedo-seizures History of Any Multi-Drug Resistant Organisms: None Reported Past Surgical History: No Surgical Hx Reported Additional Past Surgical History / Comment(s): L eye surgery for strabismus Past Anesthesia/Blood Transfusion Reactions: No Reported Reaction Past Psychological History: No Psychological Hx Reported Smoking Status: Former smoker Past Alcohol Use History: None Reported Past Drug Use History: Marijuana - Past Family History Father History Unknown: Yes Additional Family Medical History / Comment(s): Pt was adopted. Mother Family Medical History: No Reported History Additional Family Medical History / Comment(s): Pt knows biological mother is healthy. General Exam Limitations: no limitations General appearance: alert, in no apparent distress Head exam: Present: atraumatic, normocephalic Eye exam: Present: normal appearance, PERRL, EOMI ENT exam: Present: normal oropharynx, mucous membranes moist, TM's normal bilaterally, other (No oral or glossal injury is noted on exam) Neck exam: Present: other (Trachea is in midline; no nuchal rigidity or meningeal signs are present on exam). Absent: tenderness, meningismus Respiratory exam: Present: normal lung sounds bilaterally. Absent: respiratory distress, wheezes, rales, rhonchi, stridor Cardiovascular Exam: Present: normal rhythm, bradycardia, normal heart sounds, other (Normal radial pulses bilaterally) GI/Abdominal exam: Present: soft. Absent: distended, tenderness, guarding Extremities exam: Present: full ROM. Absent: tenderness, pedal edema, calf tenderness Neurological exam: Present: alert, oriented X3, CN II-XII intact. Absent: motor sensory deficit Psychiatric exam: Present: normal affect, normal mood Skin exam: Present: warm, dry, intact, normal color Course Vital Signs 06/11/22 06/11/22 15:32 17:20 Temperature 98.3 F Pulse Rate 54 L 55 L Respiratory 16 16 Rate Blood Pressure 103/72 114/60 O2 Sat by Pulse 100 98 Oximetry - Reevaluation(s) Reevaluation #1: 06/11/22 18:27 Patient has not had any further seizure activity while in the ED. Patient con tinues to have a normal neurological exam. Patient's labs are fairly unremarkable. I do not suspect an emergent medical condition at this time. Patient wishes to be discharged home at this time. Patient and boyfriend both feel comfortable with the patient being discharged home at this time. Patient and boyfriend are aware the patient's test results. Patient was counseled about seizures, and she was clearly explained return and follow-up instructions. Patient was instructed to follow up closely with her neurologist, as well as her primary care provider. Patient was also instructed to be certain to take her medications regularly as prescribed. Patient feels comfortable with this plan. EKG Findings - EKG Comments: EKG Findings:: Sinus bradycardia, ventricular rate of 55 bpm, no ectopy, normal [place] and QRS intervals, normal QT interval, normal axis, no ST or T-wave abnormality Medical Decision Making - Lab Data Result diagrams: 06/11/22 15:43 06/11/22 15:43 Lab Results 06/11/22 06/11/22 Range/Units 15:43 15:43 WBC 6.1 (3.8-10.6) k/uL RBC 4.15 (3.80-5.40) m/uL Hgb 12.8 (11.4-16.0) gm/dL Hct 39.1 (34.0-46.0) % MCV 94.1 (80.0-100.0) fL MCH 30.7 (25.0-35.0) pg MCHC 32.7 (31.0-37.0) g/dL RDW 12.7 (11.5-15.5) % Plt Count 204 (150-450) k/uL MPV 8.7 Neutrophils % 57 % Lymphocytes % 27 % Monocytes % 6 % Eosinophils % 8 % Basophils % 1 % Neutrophils # 3.4 (1.3-7.7) k/uL Lymphocytes # 1.6 (1.0-4.8) k/uL Monocytes # 0.4 (0-1.0) k/uL Eosinophils # 0.5 (0-0.7) k/uL Basophils # 0.1 (0-0.2) k/uL Sodium 140 (137-145) mmol/L Potassium 3.5 (3.5-5.1) mmol/L Chloride 112 H (98-107) mmol/L Carbon Dioxide 19 L (22-30) mmol/L Anion Gap 9 mmol/L BUN 8 (7-17) mg/dL Creatinine 0.97 (0.52-1.04) mg/dL Est GFR (CKD-EPI)AfAm >90 (>60 ml/min/1.73 sqM) Est GFR (CKD-EPI)NonAf 81 (>60 ml/min/1.73 sqM) Glucose 100 H (74-99) mg/dL Calcium 9.1 (8.4-10.2) mg/dL Magnesium 2.0 (1.6-2.3) mg/dL Total Bilirubin 0.2 (0.2-1.3) mg/dL AST 17 (14-36) U/L ALT 12 (4-34) U/L Alkaline Phosphatase 71 (38-126) U/L Total Protein 7.1 (6.3-8.2) g/dL Albumin 4.0 (3.5-5.0) g/dL HCG, Qual Not Detected Serum Alcohol <10 mg/dL Disposition Clinical Impression: Seizure disorder Disposition: HOME SELF-CARE Condition: Stable Instructions (If sedation given, give patient instructions): Recurrent Seizures in Adults (ED) Additional Instructions: Return to the ER immediately should you develop another seizure, any significant pain, numbness or weakness, a fever, vomiting, shortness of breath, feeling dizzy or faint, or new or worsening symptoms. Follow up closely with your primary care provider, as well as your neurologist. Is patient prescribed a controlled substance at d/c from ED?: No Referrals: Javier Grayson MD [Primary Care Provider] - 1-2 days Time of Disposition: 18:30
[2022-06-11 16:02] LABS: Basophils # (A) 0.1 k/uL (0-0.2); Basophils % (A) 1 %; Eosinophils # (A) 0.5 k/uL (0-0.7); Eosinophils % (A) 8 %; HCT 39.1 % (34.0-46.0); HGB 12.8 gm/dL (11.4-16.0); Lymphocytes # (A) 1.6 k/uL (1.0-4.8); Lymphocytes % (A) 27 %; MCH 30.7 pg (25.0-35.0); MCHC 32.7 g/dL (31.0-37.0); MCV 94.1 fL (80.0-100.0); Mean Platelet Volume 8.7; Monocytes # (A) 0.4 k/uL (0-1.0); Monocytes % (A) 6 %; Neutrophils # (A) 3.4 k/uL (1.3-7.7); Neutrophils % (A) 57 %; Platelet Count 204 k/uL (150-450); RBC 4.15 m/uL (3.80-5.40); RDW 12.7 % (11.5-15.5); WBC 6.1 k/uL (3.8-10.6)
[2022-06-11 16:29] LABS: HCG,Qualitative Serum Not Detected
[2022-06-11 16:34] LABS: ALT 12 U/L (4-34); AST 17 U/L (14-36); African American GFR (CKD) >90 (>60 ml/min/1.73 sqM); Alcohol <10 mg/dL; Alkaline Phosphatase 71 U/L (38-126); Anion Gap 9 mmol/L; Blood Urea Nitrogen 8 mg/dL (7-17); Calcium 9.1 mg/dL (8.4-10.2); Carbon Dioxide 19 mmol/L (22-30); Chloride 112 mmol/L (98-107); Glucose 100 mg/dL (74-99); Non-African American GFR(CKD) 81 (>60 ml/min/1.73 sqM); Potassium 3.5 mmol/L (3.5-5.1); Sodium 140 mmol/L (137-145); Total Bilirubin 0.2 mg/dL (0.2-1.3); Total Protein 7.1 g/dL (6.3-8.2)
[2022-06-11 17:20] VITALS: TEMP 98.3
[2022-06-11 18:51] VITALS: BP 104/60; PULSE 60; RESP 18
== END 2022-06-11 18:51 | disposition home or self-care (01) ==
LOC: EC 15:15
DX: R56.9 Unspecified convulsions (principal); Z87.891 Personal history of nicotine dependence; Z88.0 Allergy status to penicillin; Z88.8 Allergy status to other drugs, medicaments and biological substances
CPT/HCPCS: 99285; 96360; 96361; 96372; 36415; 93005; 80053; 83735; 85025; 84703; 84146; G0480; J2060; 80320

== ENCOUNTER 2022-06-13 15:08 | Emergency (ER) | payer OTHER ==
[2022-06-13 15:13] VITALS: RESP 18
[2022-06-13 16:07] LABS: Basophils % (A) 1 %; Eosinophils # (A) 0.3 k/uL (0-0.7); Eosinophils % (A) 4 %; HCT 38.8 % (34.0-46.0); HGB 12.8 gm/dL (11.4-16.0); Lymphocytes # (A) 1.3 k/uL (1.0-4.8); Lymphocytes % (A) 17 %; MCH 31.2 pg (25.0-35.0); MCHC 33.1 g/dL (31.0-37.0); MCV 94.3 fL (80.0-100.0); Mean Platelet Volume 9.4; Monocytes # (A) 0.4 k/uL (0-1.0); Monocytes % (A) 5 %; Neutrophils # (A) 5.3 k/uL (1.3-7.7); Neutrophils % (A) 72 %; Platelet Count 208 k/uL (150-450); RBC 4.11 m/uL (3.80-5.40); RDW 12.8 % (11.5-15.5); WBC 7.3 k/uL (3.8-10.6)
--- NOTE | 2022-06-13 16:09 | ED ---
General Adult HPI - General Chief complaint: Seizure Stated complaint: syncope Time Seen by Provider: 06/13/22 15:12 Source: patient Mode of arrival: ambulatory Limitations: no limitations - History of Present Illness Initial comments: Dictation was produced using [employer] dictation software. please excuse any grammatical, word or spelling errors. 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 She takes 3 antiepileptic medications. Patient is well-known to our emergency room for frequent visitations for seizures. She states she had 6 seizures today. She normally has 2-3 daily. Patient reports that she's been compliant with her seizure medications. She states she was smoking or marijuana up and when all of a sudden she passed out. Patient has any complaints at this time. He has been under a lot of stress due to some personal reasons. She states that she broke up with her fianc recently. The ROS documented in this emergency department record has been reviewed and confirmed by me. Those systems with pertinent positive or negative responses have been documented in the HPI. All other systems are other negative and/or noncontributory. PHYSICAL EXAM: General Impression: Alert and oriented x3, not in acute distress HEENT: Normocephalic atraumatic, extra-ocular movements intact, pupils equal and reactive to light bilaterally, mucous membranes moist. Cardiovascular: Heart regular rate and rhythm Chest: Able to complete full sentences, no retractions, no tachypnea Abdomen: abdomen soft, non-tender, non-distended, no organomegaly Musculoskeletal: Pulses present and equal in all extremities, no peripheral edema Motor: no focal deficits noted Neurological: CN II-XII grossly intact, no focal motor or sensory deficits noted Skin: Intact with no visualized rashes Psych: Normal affect and mood ED course: 26 yo female presents to the emergency department for seizure today. Patient has seizures daily. States that she had 6 of him today. Patient states that she normally has 2-3 daily. She has had undergone extensive seizure workup in the past. In our facility she was admitted earlier this year and felt that her presentation was psychogenic in nature. Patient requested that she be discharge prior to blood work. She did not want to come to the emergency room today. Patient understands the risk of being discharged without proper observation and workup. Patient states that she has an appointment with her neurologist in the near future. Patient is signing out AGAINST MEDICAL ADVICE. Risk and benefits were discussed. - Related Data Home Medications Medication Instructions Recorded Confirmed Escitalopram Oxalate [Lexapro] 10 mg PO DAILY 02/01/22 02/01/22 Lacosamide [Vimpat] 50 mg PO BID 02/01/22 02/01/22 OXcarbazepine [Trileptal] 300 mg PO BID 02/01/22 02/01/22 Topiramate [Topamax] 100 mg PO BID 02/01/22 02/01/22 busPIRone HCL 15 mg PO BID 02/01/22 02/01/22 Previous Rx's Medication Instructions Recorded Nitrofurantoin Monohyd/M-Cryst 100 mg PO Q12HR #6 cap 06/09/22 [Macrobid] Potassium Chloride [Klor-Con 20 20 meq PO DAILY #7 packet 06/09/22 Packets] Allergies Allergy/AdvReac Type Severity Reaction Status Date / Time amoxicillin AdvReac Nausea & Verified 06/13/22 15:13 Vomiting & Diarrhea diphenhydramine AdvReac Nausea & Verified 06/13/22 15:13 [From Benadryl Allergy] Vomiting & Diarrhea Review of Systems ROS Statement: Those systems with pertinent positive or pertinent negative responses have been documented in the HPI. ROS Other: All systems not noted in ROS Statement are negative. 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 Mother Family Medical History: No Reported History Additional Family Medical History / Comment(s): Pt knows biological mother is healthy. General Exam Limitations: no limitations Course Vital Signs 06/13/22 06/13/22 15:09 15:32 Temperature 99.4 F Pulse Rate 60 57 L Respiratory 18 18 Rate Blood Pressure 105/76 O2 Sat by Pulse 97 Oximetry Medical Decision Making - Lab Data Result diagrams: 06/13/22 15:56 Lab Results 06/13/22 Range/Units 15:56 WBC 7.3 (3.8-10.6) k/uL RBC 4.11 (3.80-5.40) m/uL Hgb 12.8 (11.4-16.0) gm/dL Hct 38.8 (34.0-46.0) % MCV 94.3 (80.0-100.0) fL MCH 31.2 (25.0-35.0) pg MCHC 33.1 (31.0-37.0) g/dL RDW 12.8 (11.5-15.5) % Plt Count 208 (150-450) k/uL MPV 9.4 Neutrophils % 72 % Lymphocytes % 17 % Monocytes % 5 % Eosinophils % 4 % Basophils % 1 % Neutrophils # 5.3 (1.3-7.7) k/uL Lymphocytes # 1.3 (1.0-4.8) k/uL Monocytes # 0.4 (0-1.0) k/uL Eosinophils # 0.3 (0-0.7) k/uL Basophils # 0.0 (0-0.2) k/uL Disposition Clinical Impression: Recurrent seizures Disposition: Left Against Medical Advice Condition: Fair Instructions (If sedation given, give patient instructions): Recurrent Seizures in Adults (ED) Referrals: Javier Grayson MD [Primary Care Provider] - 1-2 days Time of Disposition: 16:09
[2022-06-13 16:28] LABS: African American GFR (CKD) >90 (>60 ml/min/1.73 sqM); Anion Gap 10 mmol/L; Blood Urea Nitrogen 14 mg/dL (7-17); Calcium 9.4 mg/dL (8.4-10.2); Carbon Dioxide 18 mmol/L (22-30); Chloride 110 mmol/L (98-107); Glucose 100 mg/dL (74-99); Non-African American GFR(CKD) 83 (>60 ml/min/1.73 sqM); Potassium 3.8 mmol/L (3.5-5.1); Sodium 138 mmol/L (137-145)
[2022-06-13 16:41] VITALS: BP 112/84; PULSE 43; TEMP 97.8
== END 2022-06-13 16:30 | disposition left against medical advice (07) ==
LOC: EC 15:08
DX: G40.901 Epilepsy, unspecified, not intractable, with status epilepticus (principal); F17.209 Nicotine dependence, unspecified, with unspecified nicotine-induced disorders; Z88.3 Allergy status to other anti-infective agents; Z88.0 Allergy status to penicillin
CPT/HCPCS: 36415; 80048; 85025; 99284

== ENCOUNTER 2022-07-01 08:28 | Emergency (ER) | payer OTHER ==
[2022-07-01] MEDS ORDERED: SODIUM CHLORIDE 0.9% 500 ML 500 ML IV STA (08:32)
[2022-07-01 08:33] VITALS: BP 92/62; PULSE 70; RESP 16; TEMP 98.4
--- NOTE | 2022-07-01 08:40 | ED ---
Seizure HPI - General Chief Complaint: Seizure Stated Complaint: seizure Time Seen by Provider: 07/01/22 08:31 Source: patient, EMS, RN notes reviewed Mode of arrival: EMS Limitations: no limitations - History of Present Illness Initial Comments: 26-year-old female presents emergency Department with chief complaint of seizure. Patient has a history of seizures. This was apparently witnessed by family. Patient states she is on multiple medications does see [place] [facility] [place] [id number]. Patient states that she's been taking her medication as directed. Patient's had multiple sutures of recent. Patient states she's been started on new medication. EMS reports that they did give the patient 10 of Versed IM and they states that she had no postictal state EMS stated that the patient stopped seizing and mainly states that "Im back". Patient denies any tongue injury no other complaints - Related Data Home Medications Medication Instructions Recorded Confirmed OXcarbazepine [Trileptal] 300 mg PO BID 02/01/22 07/01/22 Topiramate [Topamax] 100 mg PO BID 02/01/22 07/01/22 ALPRAZolam [Xanax] 0.25 mg PO BID 07/01/22 07/01/22 Brivaracetam [Briviact] 50 mg PO TID 07/01/22 07/01/22 Cephalexin [Keflex] 500 mg PO TID 07/01/22 07/01/22 Propranolol [Inderal] 40 mg PO Q8H 07/01/22 07/01/22 Allergies Allergy/AdvReac Type Severity Reaction Status Date / Time amoxicillin AdvReac Nausea & Verified 07/01/22 08:52 Vomiting & Diarrhea diphenhydramine AdvReac Nausea & Verified 07/01/22 08:52 [From Benadryl Allergy] Vomiting & Diarrhea Review of Systems ROS Statement: Those systems with pertinent positive or pertinent negative responses have been documented in the HPI. ROS Other: All systems not noted in ROS Statement are negative. 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 Mother Family Medical History: No Reported History Additional Family Medical History / Comment(s): Pt knows biological mother is healthy. General Exam Limitations: no limitations General appearance: alert, in no apparent distress Head exam: Present: atraumatic, normocephalic, normal inspection Eye exam: Present: normal appearance, PERRL, EOMI. Absent: scleral icterus, conjunctival injection, periorbital swelling ENT exam: Present: normal exam, normal oropharynx, mucous membranes moist Neck exam: Present: normal inspection, full ROM. Absent: tenderness, meningismus, lymphadenopathy Respiratory exam: Present: normal lung sounds bilaterally. Absent: respiratory distress, wheezes, rales, rhonchi, stridor Cardiovascular Exam: Present: regular rate, normal rhythm, normal heart sounds. Absent: systolic murmur, diastolic murmur, rubs, gallop, clicks Neurological exam: Present: alert, oriented X3, CN II-XII intact Skin exam: Present: warm, dry, intact, normal color. Absent: rash Course Vital Signs 07/01/22 08:29 Temperature 98.4 F Pulse Rate 70 Respiratory 16 Rate Blood Pressure 92/62 O2 Sat by Pulse 96 Oximetry Medical Decision Making - Medical Decision Making 26-year-old presented for seizure. Patient has long history of seizures, on current medication followed by neurology. Labs are stable. Patient does not want any further testing will be discharged. Return parameters were discussed. - Lab Data Result diagrams: 07/01/22 08:30 07/01/22 08:30 Lab Results 07/01/22 07/01/22 07/01/22 Range/Units 08:30 08:30 08:30 WBC 6.2 (3.8-10.6) k/uL RBC 3.98 (3.80-5.40) m/uL Hgb 12.5 (11.4-16.0) gm/dL Hct 37.0 (34.0-46.0) % MCV 92.9 (80.0-100.0) fL MCH 31.4 (25.0-35.0) pg MCHC 33.8 (31.0-37.0) g/dL RDW 12.3 (11.5-15.5) % Plt Count 133 L (150-450) k/uL MPV 9.9 Neutrophils % 56 % Lymphocytes % 31 % Monocytes % 6 % Eosinophils % 4 % Basophils % 1 % Neutrophils # 3.5 (1.3-7.7) k/uL Lymphocytes # 2.0 (1.0-4.8) k/uL Monocytes # 0.4 (0-1.0) k/uL Eosinophils # 0.3 (0-0.7) k/uL Basophils # 0.0 (0-0.2) k/uL Sodium 142 (137-145) mmol/L Potassium 3.6 (3.5-5.1) mmol/L Chloride 113 H (98-107) mmol/L Carbon Dioxide 16 L (22-30) mmol/L Anion Gap 13 mmol/L BUN 20 H (7-17) mg/dL Creatinine 0.89 (0.52-1.04) mg/dL Est GFR (CKD-EPI)AfAm >90 (>60 ml/min/1.73 sqM) Est GFR (CKD-EPI)NonAf 89 (>60 ml/min/1.73 sqM) Glucose 92 (74-99) mg/dL Plasma Lactic Acid Robby 1.5 (0.7-2.0) mmol/L Calcium 8.6 (8.4-10.2) mg/dL Magnesium 2.0 (1.6-2.3) mg/dL Total Bilirubin 0.3 (0.2-1.3) mg/dL AST 18 (14-36) U/L ALT 9 (4-34) U/L Alkaline Phosphatase 60 (38-126) U/L Total Protein 6.6 (6.3-8.2) g/dL Albumin 3.7 (3.5-5.0) g/dL Carbamazepine <3.0 ug/mL Disposition Clinical Impression: Generalized seizure, Seizure disorder Disposition: HOME SELF-CARE Condition: Stable Instructions (If sedation given, give patient instructions): Recurrent Seizures in Adults (ED) Additional Instructions: Please return to the Emergency Department if symptoms worsen or any other concerns. Is patient prescribed a controlled substance at d/c from ED?: No Referrals: Javier Grayson MD [Primary Care Provider] - 1-2 days Time of Disposition: 09:29
[2022-07-01 09:02] LABS: ALT 9 U/L (4-34); AST 18 U/L (14-36); African American GFR (CKD) >90 (>60 ml/min/1.73 sqM); Albumin 3.7 g/dL (3.5-5.0); Alkaline Phosphatase 60 U/L (38-126); Anion Gap 13 mmol/L; Blood Urea Nitrogen 20 mg/dL (7-17); Calcium 8.6 mg/dL (8.4-10.2); Carbamazepine (Tegretol) <3.0 ug/mL; Carbon Dioxide 16 mmol/L (22-30); Chloride 113 mmol/L (98-107); Glucose 92 mg/dL (74-99); Non-African American GFR(CKD) 89 (>60 ml/min/1.73 sqM); Potassium 3.6 mmol/L (3.5-5.1); Sodium 142 mmol/L (137-145); Total Bilirubin 0.3 mg/dL (0.2-1.3); Total Protein 6.6 g/dL (6.3-8.2)
[2022-07-01 09:23] LABS: Basophils % (A) 1 %; Eosinophils # (A) 0.3 k/uL (0-0.7); Eosinophils % (A) 4 %; HGB 12.5 gm/dL (11.4-16.0); Lymphocytes % (A) 31 %; MCH 31.4 pg (25.0-35.0); MCHC 33.8 g/dL (31.0-37.0); MCV 92.9 fL (80.0-100.0); Mean Platelet Volume 9.9; Monocytes # (A) 0.4 k/uL (0-1.0); Monocytes % (A) 6 %; Neutrophils # (A) 3.5 k/uL (1.3-7.7); Neutrophils % (A) 56 %; Platelet Count 133 k/uL (150-450); RBC 3.98 m/uL (3.80-5.40); RDW 12.3 % (11.5-15.5); WBC 6.2 k/uL (3.8-10.6)
== END 2022-07-01 09:40 | disposition home or self-care (01) ==
LOC: EC 08:28
DX: G40.409 Other generalized epilepsy and epileptic syndromes, not intractable, without status epilepticus (principal); F41.9 Anxiety disorder, unspecified; F17.290 Nicotine dependence, other tobacco product, uncomplicated; F12.90 Cannabis use, unspecified, uncomplicated; Z88.0 Allergy status to penicillin; Z88.8 Allergy status to other drugs, medicaments and biological substances
CPT/HCPCS: 36415; 80053; 80156; 83605; 83735; 85025; 99284

== ENCOUNTER 2022-07-23 02:11 | Emergency (ER) | payer OTHER ==
[2022-07-23 02:27] VITALS: RESP 18
[2022-07-23] MEDS ORDERED: SODIUM CHLORIDE 0.9% 1,000 ML IV STA (02:36)
[2022-07-23 03:22] LABS: Basophils % (A) 1 %; Eosinophils # (A) 0.3 k/uL (0-0.7); Eosinophils % (A) 7 %; HCT 38.3 % (34.0-46.0); HGB 12.9 gm/dL (11.4-16.0); Lymphocytes % (A) 26 %; MCH 31.8 pg (25.0-35.0); MCHC 33.6 g/dL (31.0-37.0); MCV 94.5 fL (80.0-100.0); Mean Platelet Volume 8.4; Monocytes # (A) 0.3 k/uL (0-1.0); Monocytes % (A) 8 %; Neutrophils # (A) 2.2 k/uL (1.3-7.7); Neutrophils % (A) 56 %; Platelet Count 197 k/uL (150-450); RBC 4.05 m/uL (3.80-5.40); RDW 12.6 % (11.5-15.5)
[2022-07-23 03:41] LABS: ALT 10 U/L (4-34); AST 21 U/L (14-36); African American GFR (CKD) >90 (>60 ml/min/1.73 sqM); Albumin 4.1 g/dL (3.5-5.0); Alkaline Phosphatase 75 U/L (38-126); Anion Gap 14 mmol/L; Blood Urea Nitrogen 10 mg/dL (7-17); Calcium 9.1 mg/dL (8.4-10.2); Carbon Dioxide 16 mmol/L (22-30); Chloride 109 mmol/L (98-107); Glucose 99 mg/dL (74-99); Magnesium 1.9 mg/dL (1.6-2.3); Non-African American GFR(CKD) 79 (>60 ml/min/1.73 sqM); Potassium 3.2 mmol/L (3.5-5.1); Sodium 139 mmol/L (137-145); Total Bilirubin 0.4 mg/dL (0.2-1.3); Total Protein 7.2 g/dL (6.3-8.2)
[2022-07-23] MEDS ORDERED: POTASSIUM CHLORIDE ER 20 MEQ TAB.ER PO STA (03:44)
--- NOTE | 2022-07-23 04:24 | ED ---
General Adult HPI - General Chief complaint: Seizure Stated complaint: Seizures Time Seen by Provider: 07/23/22 02:16 Source: patient, EMS, RN notes reviewed, old records reviewed Mode of arrival: EMS Limitations: no limitations - History of Present Illness Initial comments: Patient is a 26-year-old female with past medical history remarkable for epilep tic seizures on multiple medications including Topamax, Trileptal, briviact follows up with a neurologist from [facility] presents emergency department over concern for break through seizure. Has some for the most part on a daily basis. This evening had another period lasted a short period of time. Was her typical general tonic-clonic seizure. Decided to come get evaluated due to the increased frequency of them. His due to review her medications with her neurologist this month, as she is having increased frequency of them. Denies any change in her seizure. Denies any altered mental status. Currently is fully alert and oriented. Denies marijuana use. Denies any pain. His no other acute complaints at this time. Presents following seizure. - Related Data Home Medications Medication Instructions Recorded Confirmed OXcarbazepine [Trileptal] 300 mg PO BID 02/01/22 07/01/22 Topiramate [Topamax] 100 mg PO BID 02/01/22 07/01/22 ALPRAZolam [Xanax] 0.25 mg PO BID 07/01/22 07/01/22 Brivaracetam [Briviact] 50 mg PO TID 07/01/22 07/01/22 Cephalexin [Keflex] 500 mg PO TID 07/01/22 07/01/22 Propranolol [Inderal] 40 mg PO Q8H 07/01/22 07/01/22 Allergies Allergy/AdvReac Type Severity Reaction Status Date / Time amoxicillin AdvReac Nausea & Verified 07/01/22 08:52 Vomiting & Diarrhea diphenhydramine AdvReac Nausea & Verified 07/01/22 08:52 [From Benadryl Allergy] Vomiting & Diarrhea Review of Systems ROS Statement: Those systems with pertinent positive or pertinent negative responses have been documented in the HPI. Review of Systems: CONST: Denies fever EYES: Denies blurry vision ENT: Denies nasal congestion C/V: Denies Chest pain RESP: Denies shortness of breath GI: Denies abdominal pain : Denies dysuria SKIN: Denies rash. MSK: Denies joint pain. NEURO: Denies headache ROS Other: All systems not noted in ROS Statement are negative. 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 Mother Family Medical History: No Reported History Additional Family Medical History / Comment(s): Pt knows biological mother is healthy. General Exam - General Exam Comments Initial Comments: General: Appears in no acute distress. HEAD: Normal with no signs of head trauma. EYES: PERRLA, EOMI, conjunctiva normal, no discharge. ENT: Hearing grossly intact, normal oropharynx. RESPIRATORY: Clear breath sounds bilaterally. No wheezes, rales, or rhonchi. C/V: Regular rate and rhythm. S1 and S2 auscultated, no edema, peripheral pulses 2+ and intact throughout ABD: Abd is soft, nontender, nondistended EXT: Normal range of motion, no obvious deformity SKIN: No rashes or lesions observed on exposed skin. NEURO: Alert and oriented 4. No focal deficits. GCS of 15. NIH of 0. Limitations: no limitations Course Vital Signs 07/23/22 02:24 Pulse Rate 79 Respiratory 18 Rate Blood Pressure 121/83 O2 Sat by Pulse 100 Oximetry Medical Decision Making - Medical Decision Making Based on the patient's presentation and physical exam, she is having breakthrough seizures. Exam is unremarkable. She is on multiple seizure medications. Has them on a daily basis. His to follow-up with a neurologist soon to discuss medications. Is on multiple medications currently has not missed any dosing. Presents following a seizure. His no acute complaints at this time. We will obtain basic labs, EKG and monitor the patient for a period of at least 2 hours in the department. She was in agreement this plan. Vital signs within normal limits. EKG shows no signs of acute ischemia. Laboratory studies are within normal limits. She is slightly hypokalemic, and therefore will be replenished. On reevaluation, patient is feeling improved. No changes in the exam. Vital signs remained stable. We discussed results. Recommended she continue follow- up with her neurologist. I will not start her on a new antiepileptic, she has tried most of them without much improvement. She is to follow up with her neurologist to figure out a plan for her seizures. She was in agreement this plan. We discussed that she cannot drive as she had recent break through seizure. I instructed the patient to follow up with their PCP in the next 1-3 days. I explained that the patient should return to the emergency department if they experience any worsening symptoms. Strict return precautions were discussed with the patient. The patient expressed understanding of these instructions. I answered all questions that the patient had. The patient was discharged home in good condition with their prescriptions and follow up information. - Lab Data Result diagrams: 07/23/22 02:44 07/23/22 02:44 Lab Results 07/23/22 07/23/22 Range/Units 02:44 02:44 WBC 4.0 (3.8-10.6) k/uL RBC 4.05 (3.80-5.40) m/uL Hgb 12.9 (11.4-16.0) gm/dL Hct 38.3 (34.0-46.0) % MCV 94.5 (80.0-100.0) fL MCH 31.8 (25.0-35.0) pg MCHC 33.6 (31.0-37.0) g/dL RDW 12.6 (11.5-15.5) % Plt Count 197 (150-450) k/uL MPV 8.4 Neutrophils % 56 % Lymphocytes % 26 % Monocytes % 8 % Eosinophils % 7 % Basophils % 1 % Neutrophils # 2.2 (1.3-7.7) k/uL Lymphocytes # 1.0 (1.0-4.8) k/uL Monocytes # 0.3 (0-1.0) k/uL Eosinophils # 0.3 (0-0.7) k/uL Basophils # 0.0 (0-0.2) k/uL Sodium 139 (137-145) mmol/L Potassium 3.2 L (3.5-5.1) mmol/L Chloride 109 H (98-107) mmol/L Carbon Dioxide 16 L (22-30) mmol/L Anion Gap 14 mmol/L BUN 10 (7-17) mg/dL Creatinine 0.98 (0.52-1.04) mg/dL Est GFR (CKD-EPI)AfAm >90 (>60 ml/min/1.73 sqM) Est GFR (CKD-EPI)NonAf 79 (>60 ml/min/1.73 sqM) Glucose 99 (74-99) mg/dL Calcium 9.1 (8.4-10.2) mg/dL Magnesium 1.9 (1.6-2.3) mg/dL Total Bilirubin 0.4 (0.2-1.3) mg/dL AST 21 (14-36) U/L ALT 10 (4-34) U/L Alkaline Phosphatase 75 (38-126) U/L Total Protein 7.2 (6.3-8.2) g/dL Albumin 4.1 (3.5-5.0) g/dL - EKG Data -: EKG Interpreted by Me EKG Comments: 12-lead Electrocardiogram Interpretation Note EKG was reviewed and interpreted by myself. 12-lead ECG performed at 0253 is interpreted by me as revealing normal sinus rhythm at a rate of 69 beats per minute. Mason is normal. HI interval is 157 ms, QRS duration is 85 ms, QTc is 420 ms.. There were no ST or T wave abnormalities to suggest myocardial ischemia or injury. R wave progression across the precordium was satisfactory. By my interpretation this EKG is non-diagnostic for acute ischemia. Disposition Clinical Impression: Breakthrough seizure Disposition: HOME SELF-CARE Condition: Good Instructions (If sedation given, give patient instructions): Seizure/Epilepsy Discharge Instructions & Follow-Up Is patient prescribed a controlled substance at d/c from ED?: No Referrals: Javier Grayson MD [Primary Care Provider] - 1-2 days Time of Disposition: 04:15
[2022-07-23 04:38] VITALS: BP 116/68; PULSE 69; TEMP 98.6
== END 2022-07-23 04:37 | disposition home or self-care (01) ==
LOC: EC 02:11
DX: G40.909 Epilepsy, unspecified, not intractable, without status epilepticus (principal); F17.200 Nicotine dependence, unspecified, uncomplicated; Z88.0 Allergy status to penicillin; Z88.8 Allergy status to other drugs, medicaments and biological substances
CPT/HCPCS: 36415; 80053; 83735; 85025; 93005; 96360; 99285

== ENCOUNTER 2023-07-16 22:01 | Emergency (ER) | payer OTHER ==
[2023-07-16 22:07] VITALS: RESP 18
[2023-07-16] MEDS ORDERED: SODIUM CHLORIDE 0.9% 1,000 ML IV STA (22:38)
[2023-07-16] MEDS ORDERED: KETOROLAC 15 MG/ML 1 ML VIAL IVP STA (22:39)
[2023-07-16 23:15] LABS: Basophils % (A) 0 %; Eosinophils # (A) 0.3 k/uL (0-0.7); Eosinophils % (A) 5 %; HGB 13.1 gm/dL (11.4-16.0); Lymphocytes # (A) 1.5 k/uL (1.0-4.8); Lymphocytes % (A) 29 %; MCH 31.1 pg (25.0-35.0); MCHC 34.5 g/dL (31.0-37.0); Mean Platelet Volume 8.2; Monocytes # (A) 0.3 k/uL (0-1.0); Monocytes % (A) 5 %; Neutrophils # (A) 3.2 k/uL (1.3-7.7); Neutrophils % (A) 60 %; Platelet Count 210 k/uL (150-450); RBC 4.23 m/uL (3.80-5.40); RDW 12.1 % (11.5-15.5); WBC 5.4 k/uL (3.8-10.6)
[2023-07-16 23:25] LABS: Appearance,Urine Cloudy (Clear); Bilirubin,Urine Negative (Negative); Blood,Urine Negative (Negative); Color,Urine Yellow; Glucose,Urine (UA) Negative (Negative); Ketones,Urine Negative (Negative); Leukocyte Esterase,Urine Large (Negative); Mucus,Urine Rare /hpf; Nitrite,Urine Negative (Negative); Protein,Urine Trace (Negative); RBC,Urine 1 /hpf (0-5); Specific Gravity,Urine 1.024 (1.001-1.035); Squamous Epithelial Cell,Urine 13 /hpf (0-4); Urobilinogen,Urine <2.0 mg/dL (<2.0); WBC,Urine 9 /hpf (0-5)
[2023-07-16 23:41] LABS: ALT 15 U/L (4-34); AST 26 U/L (14-36); African American GFR (CKD) >90 (>60 ml/min/1.73 sqM); Albumin 4.1 g/dL (3.5-5.0); Alkaline Phosphatase 60 U/L (38-126); Anion Gap 9 mmol/L; Blood Urea Nitrogen 12 mg/dL (7-17); Calcium 9.2 mg/dL (8.4-10.2); Carbon Dioxide 24 mmol/L (22-30); Chloride 106 mmol/L (98-107); Glucose 89 mg/dL (74-99); Lipase 121 U/L (23-300); Non-African American GFR(CKD) 86 (>60 ml/min/1.73 sqM); Potassium 3.5 mmol/L (3.5-5.1); Sodium 139 mmol/L (137-145); Total Bilirubin 0.4 mg/dL (0.2-1.3); Total Protein 7.9 g/dL (6.3-8.2)
--- NOTE | 2023-07-17 | CT ---
EXAMINATION TYPE: CT abdomen pelvis w con DATE OF EXAM: 07/16/2023 COMPARISON: NONE HISTORY: 27-year-old female acute abdominal pain, Rectum pain. TECHNIQUE: Contiguous axial scanning of the abdomen and pelvis following administration of 100 ml Iso hayder 300 IV contrast. Delayed images through the kidneys and coronal/sagittal reconstructions perform ed. CT DLP: 828.5 mGycm Automated exposure control for dose reduction was used. FINDINGS: LUNG BASES: No significant abnormality is appreciated. LIVER/GB: No significant abnormality is appreciated. Gallbladder is collapsed. PANCREAS: No significant abnormality is seen. SPLEEN: No significant abnormality is seen. ADRENALS: No significant abnormality is seen. KIDNEYS: Partial kidney. Normal enhancement and excretion on delayed scan. No hydronephrosis. BOWEL: Prominent ingested material distending the stomach. No dilated small bowel, free fluid, or khloe e air. There is mild stool burden. Normal appendix. No specific abnormality identified of the rectum. LYMPH NODES: No greater than 1cm abdominal or pelvic lymph nodes are appreciated. OTHER: No significant additional abnormality is seen. PELVIS: Bladder nondistended. Uterus anteverted. Prominent follicular change in both ovaries measurin g up to 2.4 cm. Additional left-sided paraovarian cyst measuring 1.9 cm. No abnormal fluid collection in the pelvis or pelvic lymphadenopathy. OSSEOUS STRUCTURES: Some facet arthropathy especially towards the left at L3-L4. No osseous destructi ve process. IMPRESSION: 1. INCIDENTAL HORSESHOE KIDNEY. 2. PROMINENT FOLLICULAR CHANGE IN BOTH OVARIES MEASURING UP TO 2.4 CM. 3. OTHERWISE, NO ACUTE INFLAMMATORY PROCESS IDENTIFIED IN THE ABDOMEN OR PELVIS TO EXPLAIN THE PATIEN T'S SYMPTOMS.
--- NOTE | 2023-07-17 00:06 | ED ---
General Adult HPI - General Chief complaint: Recheck/Abnormal Lab/Rx Stated complaint: RECTAL ISSUES Time Seen by Provider: 07/16/23 22:11 Source: patient Mode of arrival: ambulatory Limitations: no limitations - History of Present Illness Initial comments: Patient is 27-year-old female who presents to the emergency department with rectal issue. Patient reports a red lump she noticed today in her rectum. She facetimed her mother who was concerned for rectal prolapse. Patient denies history of hemorrhoids. Mother states she looked at the patient's rectal prolapse online and looked similar. Patient reports mild pressure in her lower abdomen and rectum. States she feels constipated. Last bowel movement was 2 days ago which is not unusual for patient. No fever, chills, nausea, vomiting. No urinary issues. - Related Data Home Medications Medication Instructions Recorded Confirmed OXcarbazepine [Trileptal] 300 mg PO BID 02/01/22 07/01/22 Topiramate [Topamax] 100 mg PO BID 02/01/22 07/01/22 ALPRAZolam [Xanax] 0.25 mg PO BID 07/01/22 07/01/22 Brivaracetam [Briviact] 50 mg PO TID 07/01/22 07/01/22 Cephalexin [Keflex] 500 mg PO TID 07/01/22 07/01/22 Propranolol [Inderal] 40 mg PO Q8H 07/01/22 07/01/22 Previous Rx's Medication Instructions Recorded polyethylene glycoL 3350 [Miralax] 17 gm PO DAILY PRN #3 packet 07/17/23 Allergies Allergy/AdvReac Type Severity Reaction Status Date / Time amoxicillin AdvReac Nausea & Verified 07/16/23 22:06 Vomiting & Diarrhea diphenhydramine AdvReac Nausea & Verified 07/16/23 22:06 [From Benadryl Allergy] Vomiting & Diarrhea Review of Systems ROS Statement: Those systems with pertinent positive or pertinent negative responses have been documented in the HPI. ROS Other: All systems not noted in ROS Statement are negative. 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 Mother Family Medical History: No Reported History Additional Family Medical History / Comment(s): Pt knows biological mother is healthy. General Exam Limitations: no limitations General appearance: alert Head exam: Present: atraumatic, normocephalic, normal inspection Respiratory exam: Present: normal lung sounds bilaterally. Absent: respiratory distress, wheezes, rales, rhonchi, stridor Cardiovascular Exam: Present: regular rate, normal rhythm, normal heart sounds. Absent: systolic murmur, diastolic murmur, rubs, gallop, clicks GI/Abdominal exam: Present: soft, normal bowel sounds. Absent: distended, tenderness, guarding, rebound, rigid Rectal exam: Present: normal rectal tone, hemorrhoids (External, nonthrombosed). Absent: mass Neurological exam: Present: alert Psychiatric exam: Present: normal affect, normal mood Skin exam: Present: warm, dry, intact, normal color. Absent: rash Course Vital Signs 07/16/23 07/17/23 22:04 00:22 Temperature 97.9 F 98.2 F Pulse Rate 90 84 Respiratory 18 18 Rate Blood Pressure 125/87 122/72 O2 Sat by Pulse 99 98 Oximetry Medical Decision Making - Medical Decision Making Was pt. sent in by a medical professional or institution (, PA, SENIOR SCHEDULER, urgent care, hospital, or retirement...) When possible be specific @ -No Did you speak to anyone other than the patient for history (EMS, parent, family, police, friend...)? What history was obtained from this source @ -Mother provided history about visualization of rectum Did you review nursing and triage notes (agree or disagree)? Why? @ -[I reviewed and somewhat agree. Patient denied any discharge from rectum Were old charts reviewed (outside hosp., previous admission, EMS record, old EKG, old radiological studies, urgent care reports/EKG's, retirement records)? Report findings @ -No old charts were reviewed Differential Diagnosis (chest pain, altered mental status, abdominal pain women, abdominal pain men, vaginal bleeding, weakness, fever, dyspnea, syncope, headache, dizziness, GI bleed, back pain, seizure, CVA, palpatations, mental health)? @ -Differential Abdominal Pain Women: Appendicitis, Cholecystitis, diverticulosis, ischemic bowel, pancreatitis, hepatitis, UTI, gastroenteritis, AAA, incarcerated hernia, bowel obstruction, constipation, inflammatory bowel, hepatitis, peptic ulcer disease, splenic infarction, perforated viscus, vulvitis, ovarian torsion, PID, kidney stone, placenta abruption, this is not meant to be an all-inclusive list EKG interpreted by me (3pts min.). @ -As above X-rays interpreted by me (1pt min.). @ -None done CT interpreted by me (1pt min.). @ No acute process U/S interpreted by me (1pt. min.). @ -None done What testing was considered but not performed or refused? (CT, X-rays, U/S, labs)? Why? @ -None What meds were considered but not given or refused? Why? @ -None Did you discuss the management of the patient with other professionals (professionals i.e. , PA, SENIOR SCHEDULER, lab, RT, psych nurse, social media analyst, brand executive, teacher, chief executive officer, business case analyst)? Give summary @ -No Was smoking cessation discussed for >3mins.? @ -No Was critical care preformed (if so, how long)? @ -No Were there social determinants of health that impacted care today? How? (Homelessness, low income, unemployed, alcoholism, drug addiction, tra nsportation, low edu. Level, literacy, decrease access to med. care, care home, rehab)? @ -No Was there de-escalation of care discussed even if they declined (Discuss DNR or withdrawal of care, Hospice)? DNR status @ -No What co-morbidities impacted this encounter? (DM, HTN, Smoking, COPD, CAD, Cancer, CVA, ARF, Chemo, Hep., AIDS, mental health diagnosis, sleep apnea, morbid obesity)? @ -None Was patient admitted / discharged? Hospital course, mention meds given and route, prescriptions, significant lab abnormalities, going to OR and other pertinent info. @ Discharge patient has small nonthrombosed external hemorrhoid visualized on exam. Due to concern from mother I did obtain CT of the abdomen and pelvis. CT interpreted by myself showing no acute process. Discussed importance of water, high fiber diet for constipation. Avoid straining. Patient discharged in stable medical condition with MiraLAX and hemorrhoid cream Undiagnosed new problem with uncertain prognosis? @ -No Drug Therapy requiring intensive monitoring for toxicity (Heparin, Nitro, Insulin, Cardizem)? @ -No Were any procedures done? @ -No Diagnosis/symptom? @ -Hemorrhoid, constipation Acute, or Chronic, or Acute on Chronic? @ -Acute Uncomplicated (without systemic symptoms) or Complicated (systemic symptoms)? @ -Uncomplicated Side effects of treatment? @ -[No] Exacerbation, Progression, or Severe Exacerbation? @ -[No] Poses a threat to life or bodily function? How? (Chest pain, USA, CT, pneumonia, PE, COPD, DKA, ARF, appy, cholecystitis, CVA, Diverticulitis, Homicidal, Suicidal, threat to staff... and all critical care pts) @ -[No] Dr. Sanchez is my attending - Lab Data Result diagrams: 07/16/23 23:02 07/16/23 23:02 Lab Results 07/16/23 07/16/23 07/16/23 Range/Units 23:02 23:02 23:02 WBC 5.4 (3.8-10.6) k/uL RBC 4.23 (3.80-5.40) m/uL Hgb 13.1 (11.4-16.0) gm/dL Hct 38.0 (34.0-46.0) % MCV 90.0 (80.0-100.0) fL MCH 31.1 (25.0-35.0) pg MCHC 34.5 (31.0-37.0) g/dL RDW 12.1 (11.5-15.5) % Plt Count 210 (150-450) k/uL MPV 8.2 Neutrophils % 60 % Lymphocytes % 29 % Monocytes % 5 % Eosinophils % 5 % Basophils % 0 % Neutrophils # 3.2 (1.3-7.7) k/uL Lymphocytes # 1.5 (1.0-4.8) k/uL Monocytes # 0.3 (0-1.0) k/uL Eosinophils # 0.3 (0-0.7) k/uL Basophils # 0.0 (0-0.2) k/uL Sodium 139 (137-145) mmol/L Potassium 3.5 (3.5-5.1) mmol/L Chloride 106 (98-107) mmol/L Carbon Dioxide 24 (22-30) mmol/L Anion Gap 9 mmol/L BUN 12 (7-17) mg/dL Creatinine 0.91 (0.52-1.04) mg/dL Est GFR (CKD-EPI)AfAm >90 (>60 ml/min/1.73 sqM) Est GFR (CKD-EPI)NonAf 86 (>60 ml/min/1.73 sqM) Glucose 89 (74-99) mg/dL Calcium 9.2 (8.4-10.2) mg/dL Total Bilirubin 0.4 (0.2-1.3) mg/dL AST 26 (14-36) U/L ALT 15 (4-34) U/L Alkaline Phosphatase 60 (38-126) U/L Total Protein 7.9 (6.3-8.2) g/dL Albumin 4.1 (3.5-5.0) g/dL Lipase 121 (23-300) U/L Urine Color Yellow Urine Appearance Cloudy H (Clear) Urine pH 7.0 (5.0-8.0) Ur Specific [place] 1.024 (1.001-1.035) Urine Protein Trace H (Negative) Urine Glucose (UA) Negative (Negative) Urine Ketones Negative (Negative) Urine Blood Negative (Negative) Urine Nitrite Negative (Negative) Urine Bilirubin Negative (Negative) Urine Urobilinogen <2.0 (<2.0) mg/dL Ur Leukocyte Esterase Large H (Negative) Urine RBC 1 (0-5) /hpf Urine WBC 9 H (0-5) /hpf Ur Squamous Epith Cells 13 H (0-4) /hpf Urine Mucus Rare H (None) /hpf Urine HCG, Qual (Not Detectd) 07/16/23 Range/Units 23:02 WBC (3.8-10.6) k/uL RBC (3.80-5.40) m/uL Hgb (11.4-16.0) gm/dL Hct (34.0-46.0) % MCV (80.0-100.0) fL MCH (25.0-35.0) pg MCHC (31.0-37.0) g/dL RDW (11.5-15.5) % Plt Count (150-450) k/uL MPV Neutrophils % % Lymphocytes % % Monocytes % % Eosinophils % % Basophils % % Neutrophils # (1.3-7.7) k/uL Lymphocytes # (1.0-4.8) k/uL Monocytes # (0-1.0) k/uL Eosinophils # (0-0.7) k/uL Basophils # (0-0.2) k/uL Sodium (137-145) mmol/L Potassium (3.5-5.1) mmol/L Chloride (98-107) mmol/L Carbon Dioxide (22-30) mmol/L Anion Gap mmol/L BUN (7-17) mg/dL Creatinine (0.52-1.04) mg/dL Est GFR (CKD-EPI)AfAm (>60 ml/min/1.73 sqM) Est GFR (CKD-EPI)NonAf (>60 ml/min/1.73 sqM) Glucose (74-99) mg/dL Calcium (8.4-10.2) mg/dL Total Bilirubin (0.2-1.3) mg/dL AST (14-36) U/L ALT (4-34) U/L Alkaline Phosphatase (38-126) U/L Total Protein (6.3-8.2) g/dL Albumin (3.5-5.0) g/dL Lipase (23-300) U/L Urine Color Urine Appearance (Clear) Urine pH (5.0-8.0) Ur Specific [place] (1.001-1.035) Urine Protein (Negative) Urine Glucose (UA) (Negative) Urine Ketones (Negative) Urine Blood (Negative) Urine Nitrite (Negative) Urine Bilirubin (Negative) Urine Urobilinogen (<2.0) mg/dL Ur Leukocyte Esterase (Negative) Urine RBC (0-5) /hpf Urine WBC (0-5) /hpf Ur Squamous Epith Cells (0-4) /hpf Urine Mucus (None) /hpf Urine HCG, Qual Not Detected (Not Detectd) Disposition Clinical Impression: Hemorrhoid, Constipation Disposition: HOME SELF-CARE Condition: Good Instructions (If sedation given, give patient instructions): Constipation (ED), High Fiber Diet (ED) Additional Instructions: Take medication as needed for constipation. Increase water and fiber intake. Follow-up with primary care provider in one to 2 days. Return to the emergency department if he experiences new, concerning, or worsening symptoms Prescriptions: polyethylene glycoL 3350 [Miralax] 17 gm PO DAILY PRN #3 packet PRN Reason: Constipation Is patient prescribed a controlled substance at d/c from ED?: No Referrals: None,Stated [Primary Care Provider] - 1-2 days
[2023-07-17] MEDS ORDERED: BENZOCAINE 20% HEMORRHOIDAL OINT 28GM RECTAL STA (00:09)
[2023-07-17 00:24] VITALS: BP 122/72; PULSE 84; TEMP 98.2
== END 2023-07-17 00:27 | disposition home or self-care (01) ==
LOC: EC 22:01
DX: K64.9 Unspecified hemorrhoids (principal); Q63.1 Lobulated, fused and horseshoe kidney; F41.9 Anxiety disorder, unspecified; F17.290 Nicotine dependence, other tobacco product, uncomplicated; F12.90 Cannabis use, unspecified, uncomplicated; Z79.899 Other long term (current) drug therapy; Z88.0 Allergy status to penicillin; Z88.8 Allergy status to other drugs, medicaments and biological substances
CPT/HCPCS: 36415; 80053; 83690; 85025; 81001; 81025; 74177; 99284; 96374; 96361; J1885; Q9967

== ENCOUNTER 2023-09-12 12:32 | Emergency (ER) | payer OTHER ==
[2023-09-12] MEDS ORDERED: LORazepam 2 MG/ML INJ IV STA (12:37)
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
[2023-09-12 13:00] LABS: Basophils % (A) 1 %; Eosinophils # (A) 0.4 k/uL (0-0.7); Eosinophils % (A) 7 %; HCT 39.1 % (34.0-46.0); HGB 13.5 gm/dL (11.4-16.0); Lymphocytes # (A) 3.1 k/uL (1.0-4.8); Lymphocytes % (A) 51 %; MCH 31.1 pg (25.0-35.0); MCHC 34.6 g/dL (31.0-37.0); MCV 89.8 fL (80.0-100.0); Mean Platelet Volume 7.8; Monocytes # (A) 0.2 k/uL (0-1.0); Monocytes % (A) 4 %; Neutrophils # (A) 2.1 k/uL (1.3-7.7); Neutrophils % (A) 35 %; Platelet Count 227 k/uL (150-450); RBC 4.35 m/uL (3.80-5.40); RDW 12.1 % (11.5-15.5); WBC 6.1 k/uL (3.8-10.6)
[2023-09-12 13:14] LABS: ALT 11 U/L (4-34); AST 21 U/L (14-36); African American GFR (CKD) >90 (>60 ml/min/1.73 sqM); Albumin 4.1 g/dL (3.5-5.0); Alcohol <10 mg/dL; Alkaline Phosphatase 79 U/L (38-126); Anion Gap 11 mmol/L; Blood Urea Nitrogen 18 mg/dL (7-17); Carbon Dioxide 20 mmol/L (22-30); Chloride 108 mmol/L (98-107); Glucose 123 mg/dL (74-99); Non-African American GFR(CKD) >90 (>60 ml/min/1.73 sqM); Potassium 3.4 mmol/L (3.5-5.1); Sodium 139 mmol/L (137-145); Total Bilirubin 0.3 mg/dL (0.2-1.3); Total Protein 7.6 g/dL (6.3-8.2)
--- NOTE | 2023-09-12 13:52 | CT ---
EXAMINATION TYPE: CT brain wo con CT DLP: 1063.4 mGycm, Automated exposure control for dose reduction was used. DATE OF EXAM: 09/12/2023 1:48 PM COMPARISON: 02/01/2022.. CLINICAL INDICATION:Female, 27 years old with history of seizure, hi, seizure, head injury TECHNIQUE: Brain: Axial CT images of the brain were obtained with coronal and sagittal reformats created and rev iewed. Contrast used: None. Oral contrast used: None. FINDINGS: Brain: Extra-axial spaces: No abnormal extra-axial fluid collections. Ventricular system: Within normal limits Cerebral parenchyma: No acute intraparenchymal hemorrhage or mass effect. The hernandez-white junction is well differentiated. Cerebellum: Unremarkable. Mass effect: No evidence of midline shift. Intracranial vasculature: unremarkable Soft tissues: Normal. Calvarium/osseous structures: No depressed skull fracture. Paranasal sinuses and mastoid air cells: Mild scattered paranasal sinus disease. Visualized orbits: Orbital contents are intact. IMPRESSION: No acute intracranial process.
[2023-09-12 14:19] VITALS: BP 110/79; PULSE 75; RESP 18; TEMP 98
== END 2023-09-12 14:15 | disposition home or self-care (01) ==
LOC: EC 12:32
DX: G40.309 Generalized idiopathic epilepsy and epileptic syndromes, not intractable, without status epilepticus (principal); F41.9 Anxiety disorder, unspecified; F17.290 Nicotine dependence, other tobacco product, uncomplicated; F12.90 Cannabis use, unspecified, uncomplicated; Z88.0 Allergy status to penicillin; Z88.8 Allergy status to other drugs, medicaments and biological substances; Z79.899 Other long term (current) drug therapy
CPT/HCPCS: 36415; 93005; 80053; 80183; 83735; 85025; 80320; 70450; 99285; 96374; J2060

== ENCOUNTER 2024-07-13 16:43 | Emergency (ER) | payer SELFPAY ==
[2024-07-13] MEDS ORDERED: SODIUM CHLORIDE 0.9% 1,000 ML BAG ONE (16:55)
== END 2024-07-13 20:40 | disposition home or self-care (01) ==
LOC: EC 16:43
DX: J11.1 Influenza due to unidentified influenza virus with other respiratory manifestations (principal)
CPT/HCPCS: 93005; 99284

== ENCOUNTER 2024-09-28 16:57 | Emergency (ER) | payer OTHER ==
[2024-09-28 17:19] VITALS: RESP 20; TEMP 98.1
--- NOTE | 2024-09-28 17:25 | ED ---
SOB HPI - General Source: patient, RN notes reviewed Mode of arrival: ambulatory Limitations: no limitations - History of Present Illness MD Complaint: shortness of breath, cough Onset/Timin -: days(s) <PaulaDavid - Last Filed: 09/28/24 17:23> - General Source: patient, RN notes reviewed <Jessica Loya - Last Filed: 09/28/24 19:47> - General Chief Complaint: Shortness of Breath Stated Complaint: SOB Chest pain Time Seen by Provider: 09/28/24 17:14 - History of Present Illness Initial Comments: Quick note: This is a 28-year-old female presenting with shortness of breath, cough and reproducible chest pain x 5 days. Patient states she accidentally inhaled diatomaceous earth, causing her current symptoms. Patient denies hemoptysis or constant chest pain. Also endorses increased urinary frequency and pelvic pain x 2 weeks. Endorses hearing her "heart beating" in her right ear with associated loss of hearing for 1 month. Patient denies fever, chills, fatigue, body aches, abdominal pain, N/V/D, dizziness. (David Mitchell) 28-year-old female with history of asthma presenting with cough x 5 days with shortness of breath after accidentally inhaling a cleaning substance. States her dog was recently diagnosed with fleas and she was laying diatomaceous earth down on her carpet to treat the fleas. When she vacuumed the substance, states some of the powder flew into the air and she inhaled it accidentally. She immediately became short of breath and has been having cough and sore throat since. States symptoms have been improving. She does have a history of asthma and this feels like a flareup. Denies current chest pain. She also states she has had increased urinary frequency and suprapubic pain x 2 weeks and is requesting antibiotics for UTI. Denies flank pain, fevers. (Jessica Loya) - Related Data Home Medications Medication Instructions Recorded Confirmed OXcarbazepine [Trileptal] 300 mg PO BID 02/01/22 07/01/22 Topiramate [Topamax] 100 mg PO BID 02/01/22 07/01/22 ALPRAZolam [Xanax] 0.25 mg PO BID 07/01/22 07/01/22 Brivaracetam [Briviact] 50 mg PO TID 07/01/22 07/01/22 Cephalexin [Keflex] 500 mg PO TID 07/01/22 07/01/22 Propranolol [Inderal] 40 mg PO Q8H 07/01/22 07/01/22 Previous Rx's Medication Instructions Recorded polyethylene glycoL 3350 [Miralax] 17 gm PO DAILY PRN #3 packet 07/17/23 Allergies Allergy/AdvReac Type Severity Reaction Status Date / Time amoxicillin AdvReac Nausea & Verified 09/28/24 17:19 Vomiting & Diarrhea diphenhydramine AdvReac Nausea & Verified 09/28/24 17:19 [From Benadryl Allergy] Vomiting & Diarrhea Review of Systems ROS Other: All systems not noted in ROS Statement are negative. <David Mitchell - Last Filed: 09/28/24 17:23> ROS Other: All systems not noted in ROS Statement are negative. <Jessica Loya - Last Filed: 09/28/24 19:47> ROS Statement: Those systems with pertinent positive or pertinent negative responses have been documented in the HPI. 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 Mother Family Medical History: No Reported History Additional Family Medical History / Comment(s): Pt knows biological mother is healthy. <David Mitchell - Last Filed: 09/28/24 17:23> General Exam Limitations: no limitations <David Mitchell - Last Filed: 09/28/24 17:23> General appearance: alert, in no apparent distress Head exam: Present: atraumatic, normocephalic, normal inspection Eye exam: Present: normal appearance, PERRL, EOMI. Absent: scleral icterus, conjunctival injection, periorbital swelling ENT exam: Present: normal exam, mucous membranes moist Neck exam: Present: normal inspection. Absent: tenderness, meningismus, ly mphadenopathy Respiratory exam: Present: normal lung sounds bilaterally. Absent: respiratory distress, wheezes, rales, rhonchi, stridor Cardiovascular Exam: Present: regular rate, normal rhythm, normal heart sounds. Absent: systolic murmur, diastolic murmur, rubs, gallop, clicks GI/Abdominal exam: Present: soft, normal bowel sounds. Absent: distended, tenderness, guarding, rebound, rigid Neurological exam: Present: alert, oriented X3 Psychiatric exam: Present: normal affect, normal mood Skin exam: Present: warm, dry, intact, normal color. Absent: rash <Jessica Loya - Last Filed: 09/28/24 19:47> - General Exam Comments Initial Comments: Visual Physical Exam Vital signs reviewed General: Well-appearing, nontoxic, no acute distress. Head: Normocephalic, atraumatic Eyes: PERRLA, EOMI ENT: Airway patent Chest: Nonlabored breathing Skin: No visual rash, normal skin tone Neuro: Alert and oriented 3 Musculoskeletal: No gross abnormalities (David Mitchell) Course Vital Signs 09/28/24 17:16 Temperature 98.1 F Pulse Rate 94 Respiratory 20 Rate Blood Pressure 151/103 O2 Sat by Pulse 98 Oximetry Medical Decision Making <David Mitchell - Last Filed: 09/28/24 17:23> <Jessica Loya - Last Filed: 09/28/24 19:47> - Medical Decision Making I completed the quick note portion of this chart signed TREVON Olsen (David Mitchell) Was pt. sent in by a medical professional or institution (BETHANY Stewart, IDENTIFICATION OFFICER, urgent care, hospital, or skilled nursing...) When possible be specific @ -No Did you speak to anyone other than the patient for history (EMS, parent, family, police, friend...)? What history was obtained from this source @ -No Did you review nursing and triage notes (agree or disagree)? Why? @ -I reviewed and agree with nursing and triage notes Were old charts reviewed (outside hosp., previous admission, EMS record, old EKG, old radiological studies, urgent care reports/EKG's, skilled nursing records)? Report findings @ -No old charts were reviewed Differential Diagnosis (chest pain, altered mental status, abdominal pain women, abdominal pain men, vaginal bleeding, weakness, fever, dyspnea, syncope, headache, dizziness, GI bleed, back pain, seizure, CVA, palpatations, mental health, musculoskeletal)? @ -Differential Dyspnea: Coronary syndrome, arrhythmia, tamponade, asthma, COPD, pulmonary embolism, pneumonia, pneumothorax, pulmonary effusion, anaphylaxis, diabetic ketoacidosis, flailed chest, pulmonary contusion, diaphragmatic rupture, anemia, neuromuscular, this is not meant to be an all-inclusive list. EKG interpreted by me (3pts min.). @ -None X-rays interpreted by me (1pt min.). @ -Chest x-ray reveals no acute process CT interpreted by me (1pt min.). @ -None done U/S interpreted by me (1pt. min.). @ -None done What testing was considered but not performed or refused? (CT, X-rays, U/S, labs)? Why? @ -None What meds were considered but not given or refused? Why? @ -None Did you discuss the management of the patient with other professionals (pr ofessionals i.e. , PA, IDENTIFICATION OFFICER, lab, RT, psych nurse, social service assistant, classroom instructional aide, teacher, juvenile probation officer, case advocate)? Give summary @ -No Was smoking cessation discussed for >3mins.? @ -No Was critical care preformed (if so, how long)? @ -No Were there social determinants of health that impacted care today? How? (Homelessness, low income, unemployed, alcoholism, drug addiction, transportation, low edu. Level, literacy, decrease access to med. care, long-term, rehab)? @ -No Was there de-escalation of care discussed even if they declined (Discuss DNR or withdrawal of care, Hospice)? DNR status @ -No What co-morbidities impacted this encounter? (DM, HTN, Smoking, COPD, CAD, Cancer, CVA, ARF, Chemo, Hep., AIDS, mental health diagnosis, sleep apnea, morbid obesity)? @ -None Was patient admitted / discharged? Hospital course, mention meds given and route, prescriptions, significant lab abnormalities, going to OR and other pertinent info. @ -Discharge. This is a 28-year-old female with history of asthma presenting to the ER with cough status post accidental inhalation of diatomaceous earth 5 days ago, a product for dog fleas. Patient endorses cough, sore throat, and intermittent shortness of breath that feels similar to previous asthma flareups. Also complaining of urinary frequency x 2 weeks. Vital signs are within acceptable limits. Nontachycardic, satting 98% on room air. Heart and lungs clear to auscultation bilaterally. No acute respiratory distress. Chest x-ray reveals no acute process. Cepheid negative. Urinalysis revealed contaminated sample, however no sign of UTI. Urine culture sent. Discussed results with patient. I believe it is safe to discharge patient home at this time. Advised to follow closely with PCP. Return precautions discussed and patient is agreeab le to plan. Case was discussed with my ED attending Dr. Sanchez. Patient discharged in stable condition. Undiagnosed new problem with uncertain prognosis? @ -No Drug Therapy requiring intensive monitoring for toxicity (Heparin, Nitro, Insulin, Cardizem)? @ -No Were any procedures done? @ -No Diagnosis/symptom? @ -Asthma exacerbation Acute, or Chronic, or Acute on Chronic? @ -Acute Uncomplicated (without systemic symptoms) or Complicated (systemic symptoms)? @ -Uncomplicated Side effects of treatment? @ -No Exacerbation, Progression, or Severe Exacerbation? @ -No Poses a threat to life or bodily function? How? (Chest pain, [place], [place], pneumonia, PE, COPD, DKA, ARF, appy, cholecystitis, CVA, Diverticulitis, Homicidal, Suicidal, threat to staff... and all critical care pts) @ -No (Jessica Loya) - Lab Data Lab Results 09/28/24 09/28/24 09/28/24 Range/Units 18:47 18:47 18:47 Urine Color Yellow Urine Appearance Clear (Clear) Urine pH 5.5 (5.0-8.0) Ur Specific [place] 1.033 (1.001-1.035) Urine Protein Negative (Negative) Urine Glucose (UA) Negative (Negative) Urine Ketones Negative (Negative) Urine Blood Negative (Negative) Urine Nitrite Negative (Negative) Urine Bilirubin Negative (Negative) Urine Urobilinogen <2.0 (<2.0) mg/dL Ur Leukocyte Esterase Moderate H (Negative) Urine RBC 1 (0-5) /hpf Urine WBC 7 H (0-5) /hpf Ur Squamous Epith Cells 8 H (0-4) /hpf Urine Bacteria Rare H (None) /hpf Urine Mucus Occasional H (None) /hpf Urine HCG, Qual Not Detected (Not Detectd) Influenza Type A (PCR) Not Detected (Not Detectd) Influenza Type B (PCR) Not Detected (Not Detectd) RSV (PCR) Not Detected (Not Detectd) SARS-CoV-2 (PCR) Not Detected (Not Detectd) Disposition <David Mitchell - Last Filed: 09/28/24 17:23> Is patient prescribed a controlled substance at d/c from ED?: No Time of Disposition: 19:39 <Jessica Loya - Last Filed: 09/28/24 19:47> Clinical Impression: Asthma exacerbation Disposition: HOME SELF-CARE Condition: Stable Instructions (If sedation given, give patient instructions): Bronchospasm (ED) Additional Instructions: Follow-up with PCP as discussed. Please return to the Emergency Department if symptoms worsen or any other concerns. Referrals: Julian Love MD [Primary Care Provider] - 1-2 days
--- NOTE | 2024-09-28 17:41 | XR ---
EXAMINATION TYPE: XR chest 2V DATE OF EXAM: 09/28/2024 5:31 PM COMPARISON: None available. CLINICAL INDICATION: Female, 28 years old with history of Cough, shortness of breath; [facility] TECHNIQUE: XR chest 2V Frontal and lateral views of the chest. FINDINGS: Heart size is within normal limits. PICC line no acute focal consolidation. No pleural effusion or pn eumothorax. No acute osseous abnormality. IMPRESSION: No acute cardiopulmonary disease/process. [facility], , 09/28/2024 5:38 PM
[2024-09-28 19:12] LABS: Mucus,Urine Occasional /hpf; RBC,Urine 1 /hpf (0-5); Squamous Epithelial Cell,Urine 8 /hpf (0-4); WBC,Urine 7 /hpf (0-5)
[2024-09-28 19:19] LABS: Appearance,Urine Clear (Clear); Bacteria,Urine Rare /hpf; Bilirubin,Urine Negative (Negative); Blood,Urine Negative (Negative); Color,Urine Yellow; Glucose,Urine (UA) Negative (Negative); Ketones,Urine Negative (Negative); Leukocyte Esterase,Urine Moderate (Negative); Nitrite,Urine Negative (Negative); PH, Urine 5.5 (5.0-8.0); Protein,Urine Negative (Negative); Specific Gravity,Urine 1.033 (1.001-1.035); Urobilinogen,Urine <2.0 mg/dL (<2.0)
[2024-09-28 19:45] VITALS: BP 121/86; PULSE 87
[2024-09-28] MEDS: methylPREDNISolone SOD SUCCI 125 MG/2 ML VIAL IM ONE (19:54)
== END 2024-09-28 19:59 | disposition home or self-care (01) ==
LOC: EC 16:57
DX: J45.901 Unspecified asthma with (acute) exacerbation (principal); F17.290 Nicotine dependence, other tobacco product, uncomplicated; Z88.0 Allergy status to penicillin; Z88.8 Allergy status to other drugs, medicaments and biological substances
CPT/HCPCS: 81001; 81025; 87636; 71046; 99285; 96372; J2919